=== PATIENT | female | born 1990 | race Caucasian/White ===

== ENCOUNTER → 2017-06-01 15:13 | Outpatient (CLI) | payer OTHER, SELFPAY ==
[2017-06-08 13:45] LABS: HPV Reflexed? NOT INDICATED
== END ==
PROVIDERS: Visit Provider Obstetrics & Gynecology
DX: Z12.4 Encounter for screening for malignant neoplasm of cervix (principal)
CPT/HCPCS: 88175; G0145

== ENCOUNTER → 2017-07-21 11:23 | Outpatient (CLI) | payer OTHER, SELFPAY ==
[2017-07-21 14:29] LABS: Thyroid Stim Hormone (TSH) 2.04 uIU/mL (0.358-3.74)
== END ==
PROVIDERS: Family Provider Family Medicine; PCP Family Medicine; Visit Provider Family Medicine
DX: E03.9 Hypothyroidism, unspecified (principal)
CPT/HCPCS: 36415; 84443

== ENCOUNTER → 2017-10-28 15:46 | Outpatient (CLI) | payer OTHER, SELFPAY | PROVIDERS: Family Provider Family Medicine; PCP Family Medicine; Visit Provider Otolaryngology Otolaryngology/Facial Plastic Surgery | DX: H92.10 Otorrhea, unspecified ear (principal) | CPT/HCPCS: 87070; 87075; 87077; 87186; 87205 ==

== ENCOUNTER → 2017-12-23 14:45 | Outpatient (CLI) | payer OTHER, SELFPAY ==
[2017-12-23 16:33] LABS: Thyroid Stim Hormone (TSH) 0.67 uIU/mL (0.358-3.74)
== END ==
PROVIDERS: Family Provider Family Medicine; PCP Family Medicine; Visit Provider Family Medicine
DX: E03.9 Hypothyroidism, unspecified (principal)
CPT/HCPCS: 36415; 84443

== ENCOUNTER 2018-01-04 03:52 | Emergency (ER) | payer OTHER, SELFPAY ==
[2018-01-04 03:54] VITALS: BP 120/87; PULSE 90; RESP 16; TEMP 36.7; O2SAT 98; BMI 32.8
--- NOTE | 2018-01-04 04:28 | US_ITS ---
STUDY: ABDOMINAL ULTRASOUND - RIGHT UPPER QUADRANT REASON FOR VISIT: Female, 27 years old. Abdominal pain TECHNIQUE: Ultrasound evaluation of the right upper quadrant was performed with real-time and static wiggins-scale imaging. TECHNICAL QUALITY: Limited. COMPARISON: None. FINDINGS: Liver: The liver measures 16.5 cm. There is increased echogenicity consistent with fatty infiltration. The bile ducts are within normal limits. There is hepatic color flow. The direction of portal flow is hepatopetal. Hypoechoic region left hepatic lobe 3.4 cm. Gallbladder: Normal distended gallbladder. The gallbladder wall measures 3 mm. There is a negative sonographic Gong's sign. There is no pericholecystic fluid. There are multiple echogenic structures within the gallbladder, consistent with multiple gallstones. Common Bile Duct (C.B.D.): The common bile duct measures 3 mm. Pancreas: Normal size of the head, body and tail of the pancreas. There is normal echogenicity of the pancreas. There is no demonstrated pancreatic mass or cyst. Right Kidney: Normal size of the right kidney. The right kidney measures 9.7 x 4.1 x 4.6 cm. Normal renal cortex. The right cortex measures 1.4 cm. There is no demonstrated renal mass or cyst. There is no right hydronephrosis. US/Gallbladder IMPRESSION: Cholelithiasis. No gallbladder wall thickening or pericholecystic fluid. Negative sonographic Gong's sign. Hypoechoic region within the left hepatic lobe. No prior studies available for comparison. Recommend correlation with CT scan with IV contrast. Underlying mass cannot be excluded. Other findings as above. Electronically Signed: Earl Guerra, at 6:10 EDT Tel , Service support ,
[2018-01-04] MEDS: Ondansetron 4 MG/2 ML Vial IV (04:39)
[2018-01-04] MEDS: Ketorolac 30 MG/ML Syringe IV (04:39)
[2018-01-04] MEDS: 0.9% Normal Saline 1,000 ML 1000 ML IV (04:39)
[2018-01-04 04:50] LABS: Absolute Lymphocyte Count 3.34 X10^3/ul (0.83-4.51); Absolute Neutrophil Count 5.5 X10^3/uL (2.0-7.7); Basophil# 0.03 X10^3/uL; Basophil% 0.3 % (0-1); Eosinophil# 0.15 X10^3/uL; Eosinophils% 1.5 % (0-5); Hematocrit 40.7 % (37-47); Hemoglobin 13.3 g/dl (12.0-15.0); Lymphocyte # 3.34 X10^3/ul (4.0); Lymphocyte % 34.3 % (19-41); Mean Corp Hgb Conc 32.7 g/gl (32-36); Mean Corpuscular Hgb 29.6 pg (27.0-32.0); Mean Corpuscular Volume 90.4 fL (81-99); Mean Platelet Vol. 9.9 fl (6.2-12.0); Monocyte# 0.71 X10^3/uL; Monocyte% 7.3 % (0-10); Neutrophil % 56.5 % (47-70); Platelet Count 256 K/mm3 (150-450); RBC Distribution Width CV 13.2 % (11.6-14.6); RBC Distribution Width SD 43.6 fl (35.1-43.9); White Blood Count 9.7 K/mm3 (4.4-11.0)
[2018-01-04 04:51] LABS: POSITIVE COUNT NO; POSITIVE DIFFERENTIAL NO; POSITIVE MORPHOLOGY NO
[2018-01-04 05:04] LABS: AST(SGOT) 12 U/L (15-37); Alanine Aminotransfer ALT/SGPT 32 U/L (13-56); Albumin, Serum 3.7 g/dL (3.2-5.0); Alkaline Phosphatase 90 U/L (45-117); Anion Gap 8 (5-15); BUN 17 mg/dL (7-18); BUN/Creat Ratio 18.7 RATIO (10-20); Calcium,Total 8.9 mg/dL (8.5-10.1); Chloride 105 mmol/L (98-107); Creatinine, Serum 0.91 mg/dL (0.55-1.02); EST Glomerular Filtration Rate 79 mL/min (>60); Est Glom Filt Rate - Afr Amer 96 mL/min (>60); Estimated Creatinine Clearance 67.29 ml/min; Globulin 3.7 g/dL (2.2-4.2); Glucose 99 mg/dL (74-106); Lipase 214 U/L (73-393); Protein, Total 7.4 g/dL (6.4-8.2); Sodium Level 140 mmol/L (136-145)
[2018-01-04 05:19] LABS: Pregnancy, Serum, hCG Quali. NEGATIVE Negative (0-9 Nonpreg)
[2018-01-04 05:53] VITALS: RESP 14
--- NOTE | 2018-01-04 06:31 | CT_ITS ---
STUDY: CT ABDOMEN AND PELVIS WITH CONTRAST REASON FOR EXAM: Female, 27 years old. Abdominal pain RADIATION DOSAGE (If Supplied By Facility): CTDIvol = ( 15.52 ) mGy, DLP = ( 1037.15 ) mGycm TECHNIQUE: Transaxial images were obtained from the dome of the diaphragm to the symphysis pubis without oral contrast. 100 ml of Isovue 300 contrast was administered. Sagittal and coronal images were reconstructed. Individualized dose optimization techniques were used for this CT. COMPARISON: None. FINDINGS: The visualized lung bases are unremarkable. The visualized portions of the heart are within normal limits. Normal liver. Normal gallbladder and extrahepatic biliary system. Normal spleen. Normal pancreas. Normal bilateral adrenal glands. Normal right kidney. Normal left kidney. There is a tiny 1.1 mm nonobstructing left nephrolith. Normal visualized stomach. Normal small intestine. Normal colon. The appendix is visualized and appears normal. Normal abdominal aorta. Normal inferior vena cava. Normal retroperitoneum. Normal urinary bladder. Normal visualized uterus. IUD seen in the endometrium. Normal abdominal wall. Normal osseous structures. CT/Abdomen/Pelvis W IV Cont ONLY IMPRESSION: Normal enhanced CT of the abdomen and pelvis. Electronically Signed: Reji Cloud DO at 7:20 EDT Tel , Service support ,
--- NOTE | 2018-01-04 06:36 | ED.VISSUMM ---
- ER Visit Summary Date of Service: 01/04/18 Chief Complaint: Abdominal pain History of Present Illness: The patient is a 27 F who presents with abdominal pain. Abdominal pain began about 8 hours before presentation after eating dinner. She had chicken wings and [place] fries. Her pain is burning and across the epigastrium and in the right upper quadrant. She currently rates it as 4 out of 10. She had one prior similar episode to this. She reports nausea. She has chronic diarrhea which is unchanged and not new to her current symptoms. She denies fevers. Physical Examination: Afebrile vitals are normal Moist mucous membranes Heart regular rate and rhythm Lungs are clear Abdomen soft nondistended she is tender to palpation in the right upper quadrant she has a Gong's sign but does not have guarding or rebound Alert Test Results: CBC CMP and lipase are normal. is negative. Right upper quadrant ultrasound shows cholelithiasis without gallbladder wall thickening or pericholecystic fluid. There is a hypoechoic liver area and further evaluation with CT was recommended. Emergency Department Course and Treatment: Patient was treated with IV fluids Toradol and Zofran. She is resting comfortably with significant improvement on reevaluation. Repeat abdominal exam, her abdomen remains soft it is nontender. I discussed findings with her. She has evidence of cholelithiasis but not of acute cholecystitis. I see no indication for emergent surgical consultation. I do believe she can follow-up with surgery as an outpatient. At the time of this dictation I have ordered a CT of the abdomen and pelvis which is pending at the time of this dictation and the patient will be signed out to the oncoming physician to check this result but I do believe the patient can be discharged with outpatient follow-up unless that shows an abnormality that would need more urgent intervention or evaluation. Treatment Plan: [] Disposition: Discharge Impression: Abdominal pain Cholelithiasis This note was generated with [employer] dictation software. It may contain incorrect words, spelling, and punctuation that were not noted in review of the chart prior to signing ED Disposition - Plan for ED Patient: Chief Complaint: Abd Pain Referrals: Earnest Henson MD [Primary Care Provider] -
--- NOTE | 2018-01-04 06:40 | ED.DCSUM_ITS ---
- ER Visit Summary Date of Service: 01/04/18 Chief Complaint: Abdominal pain History of Present Illness: The patient is a 27 F who presents with abdominal pain. Abdominal pain began about 8 hours before presentation after eating dinner. She had chicken wings and [place] fries. Her pain is burning and across the epigastrium and in the right upper quadrant. She currently rates it as 4 out of 10. She had one prior similar episode to this. She reports nausea. She has chronic diarrhea which is unchanged and not new to her current symptoms. She denies fevers. Physical Examination: Afebrile vitals are normal Moist mucous membranes Heart regular rate and rhythm Lungs are clear Abdomen soft nondistended she is tender to palpation in the right upper quadrant she has a Gong's sign but does not have guarding or rebound Alert Test Results: CBC CMP and lipase are normal. is negative. Right upper quadrant ultrasound shows cholelithiasis without gallbladder wall thickening or pericholecystic fluid. There is a hypoechoic liver area and further evaluation with CT was recommended. Emergency Department Course and Treatment: Patient was treated with IV fluids Toradol and Zofran. She is resting comfortably with significant improvement on reevaluation. Repeat abdominal exam, her abdomen remains soft it is nontender. I discussed findings with her. She has evidence of cholelithiasis but not of acute cholecystitis. I see no indication for emergent surgical consultation. I do believe she can follow-up with surgery as an outpatient. At the time of this dictation I have ordered a CT of the abdomen and pelvis which is pending at the time of this dictation and the patient will be signed out to the oncoming physician to check this result but I do believe the patient can be discharged with outpatient follow-up unless that shows an abnormality that would need more urgent intervention or evaluation. Treatment Plan: [] Disposition: Discharge Impression: Abdominal pain Cholelithiasis This note was generated with [employer] dictation software. It may contain incorrect words, spelling, and punctuation that were not noted in review of the chart prior to signing ED Disposition - Plan for ED Patient: Chief Complaint: Abd Pain Referrals: Earnest Henson MD [Primary Care Provider] -
--- NOTE | 2018-01-04 06:40 | ED.DEP ---
ED Disposition - Plan for ED Patient: Chief Complaint: Abd Pain Instructions: Discharge Instructions for Gallstones Referrals: Earnest Henson MD [Primary Care Provider] - Soo Troy MD [STAFF PHYSICIAN] -
[2018-01-04 07:52] VITALS: BP 134/69; PULSE 72; RESP 15; O2SAT 98
== END 2018-01-04 07:53 | disposition home or self-care (01) ==
LOC: ED 04:36
PROVIDERS: Emergency Provider Emergency Medicine; Family Provider Family Medicine; PCP Family Medicine
DX: K80.20 Calculus of gallbladder without cholecystitis without obstruction (principal); R10.13 Epigastric pain; R10.11 Right upper quadrant pain; F32.9 Major depressive disorder, single episode, unspecified; Z79.899 Other long term (current) drug therapy
CPT/HCPCS: 74177; 76705; 80053; 83690; 84703; 85025; 96361; 96374; 96375; 99283; J7030; Q9967; A4216; J2405

== ENCOUNTER 2018-01-07 01:43 | Emergency (ER) | payer OTHER, SELFPAY ==
[2018-01-07 01:44] VITALS: BP 124/92; PULSE 90; PULSE 93; RESP 17; TEMP 36.8; O2SAT 98; BMI 38.5
--- NOTE | 2018-01-07 02:00 | ED.VISSUMM ---
- ER Visit Summary Date of Service: 01/07/18 Chief Complaint: [] Abdominal pain History of Present Illness: The patient is a 27 F [] recently seen in the emergency department and diagnosed with gallbladder stones on the . Comes back with her second attack tonight. She is using ibuprofen only. Came on after dinner tonight 7 PM. Is been continuous burning sharp pressure pain associated with nausea. She saw Dr. French today in the schedule surgery for 7 days from now to have her gallbladder out Physical Examination: [] Vital signs reviewed General: Well-nourished well-developed Head: Normocephalic atraumatic Eyes: Pupils equal round and reactive to light extraocular movements intact ENT: TMs clear no hemotympanum no trauma Neck: Nontender full range of motion Cardiovascular: Regular rate rhythm no murmurs normal S1-S2 Respiratory: No distress clear to auscultation bilaterally chest nontender Abdomen: Soft mild tenderness right upper quadrant nondistended normal bowel sounds no masses Back: Nontender no CVA tenderness Extremities: Nontender active range of motion ?4 extremities no trauma Skin: Normal color no trauma Neuro alert oriented cranial nerves II through XII intact normal strength sensation reflexes Test Results: [] Emergency Department Course and Treatment: [] IV established and given IV fluids, morphine, Toradol, Zofran. Lab work obtained lab work unremarkable. No elevation in her liver function tests and lipase to suggest a common bile duct stone or cholecystitis. White count normal. Patient felt much better after treatment. Will be discharged with Zofran and a short course of Vicodin. Will do stool softeners. Will follow-up as an outpatient with her surgeon. I do not feel she needs to be admitted Treatment Plan: [] Disposition: [] Impression: [] Biliary colic This note was generated with [employer] dictation software. It may contain incorrect words, spelling, and punctuation that were not noted in review of the chart prior to signing ED Disposition - Plan for ED Patient: Chief Complaint: Abd Pain Referrals: Earnest Henson MD [Primary Care Provider] -
[2018-01-07] MEDS: 0.9% Normal Saline 1,000 ML 125 ML IV (02:07)
[2018-01-07] MEDS: Ketorolac 30 MG/ML Syringe IV (02:07)
[2018-01-07] MEDS: Ondansetron 4 MG/2 ML Vial IV (02:07)
[2018-01-07] MEDS: Morphine 2 MG/ML Syringe IV (02:07)
[2018-01-07 02:10] LABS: Absolute Lymphocyte Count 4.32 X10^3/ul (0.83-4.51); Absolute Neutrophil Count 4.4 X10^3/uL (2.0-7.7); Basophil# 0.02 X10^3/uL; Basophil% 0.2 % (0-1); Differential Indicated SCAN CRITERIA MET; Eosinophil# 0.16 X10^3/uL; Eosinophils% 1.7 % (0-5); Hematocrit 40.5 % (37-47); Hemoglobin 13.1 g/dl (12.0-15.0); Lymphocyte # 4.32 X10^3/ul (4.0); Lymphocyte % 44.8 % (19-41); Mean Corp Hgb Conc 32.3 g/gl (32-36); Mean Corpuscular Hgb 29.3 pg (27.0-32.0); Mean Corpuscular Volume 90.6 fL (81-99); Mean Platelet Vol. 9.7 fl (6.2-12.0); Monocyte# 0.74 X10^3/uL; Monocyte% 7.7 % (0-10); Neutrophil # 4.39 X10^3/uL (2.7-7.7); Neutrophil % 45.4 % (47-70); POSITIVE COUNT NO; POSITIVE DIFFERENTIAL NO; POSITIVE MORPHOLOGY YES; Platelet Count 275 K/mm3 (150-450); RBC Distribution Width CV 13.1 % (11.6-14.6); RBC Distribution Width SD 42.8 fl (35.1-43.9); Red Blood Count 4.47 M/mm3 (4.2-5.4); White Blood Count 9.7 K/mm3 (4.4-11.0)
[2018-01-07 02:19] LABS: AST(SGOT) 15 U/L (15-37); Alanine Aminotransfer ALT/SGPT 28 U/L (13-56); Albumin, Serum 3.9 g/dL (3.2-5.0); Alkaline Phosphatase 88 U/L (45-117); Anion Gap 8 (5-15); BUN 13 mg/dL (7-18); BUN/Creat Ratio 15.3 RATIO (10-20); Bilirubin, Direct 0.07 mg/dL (0.00-0.30); Calcium,Total 8.6 mg/dL (8.5-10.1); Chloride 106 mmol/L (98-107); Creatinine, Serum 0.85 mg/dL (0.55-1.02); EST Glomerular Filtration Rate 85 mL/min (>60); Est Glom Filt Rate - Afr Amer 103 mL/min (>60); Estimated Creatinine Clearance 72.04 ml/min; Globulin 3.7 g/dL (2.2-4.2); Glucose 101 mg/dL (74-106); Lipase 221 U/L (73-393); Potassium 3.9 mmol/L (3.5-5.1); Protein, Total 7.6 g/dL (6.4-8.2); Sodium Level 138 mmol/L (136-145)
[2018-01-07 02:21] LABS: Differential Comment SCANNED
--- NOTE | 2018-01-07 02:34 | DCINST.ED_ITS ---
ED Disposition - Plan for ED Patient: Disposition: Home or Assisted Living Chief Complaint: Abd Pain Instructions: ED Abdominal Pain Gallstone Poss Prescriptions: Ondansetron [Zofran Odt] 4 mg PO Q8H PRN PRN #10 tab PRN Reason: Nausea Hydrocodone/Acetaminophen [[place] 5-325 Tablet] 1 - 2 ea PO 4X/DAY PRN PRN 3 Days #12 tab PRN Reason: Pain Referrals: Zack French MD [STAFF PHYSICIAN] -
[2018-01-07 02:43] VITALS: BP 110/85; PULSE 97; RESP 14; O2SAT 97
== END 2018-01-07 02:45 | disposition home or self-care (01) ==
PROVIDERS: Emergency Provider Emergency Medicine; Family Provider Family Medicine; PCP Family Medicine
DX: K80.70 Calculus of gallbladder and bile duct without cholecystitis without obstruction (principal); E66.9 Obesity, unspecified; E03.9 Hypothyroidism, unspecified; F32.9 Major depressive disorder, single episode, unspecified; F41.9 Anxiety disorder, unspecified; Z79.899 Other long term (current) drug therapy
CPT/HCPCS: 80048; 80076; 83690; 85025; 96361; 96374; 96375; 99283; J7030; A4216; J2405

== ENCOUNTER 2018-01-11 09:04 | Day surgery (SDC) | payer OTHER, SELFPAY ==
[2018-01-11] VITALS (8 sets, daily range): BP systolic 95–119; BP diastolic 60–80; PULSE 71–95; RESP 14–18; TEMP 36.1–36.9; O2SAT 90–98; BMI 36.1
--- NOTE | 2018-01-11 09:12 | EKG12_ITS ---
Test Reason : PREOP Blood Pressure : / mmHG Vent. Rate : 082 BPM Atrial Rate : 082 BPM P-R Int : 110 ms QRS Dur : 086 ms QT Int : 374 ms P-R-T Axes : 010 022 024 degrees QTc Int : 436 ms Sinus rhythm with short HI Otherwise normal ECG Confirmed by Kassandra King ([id number]), metropolitan editor KENNY BROCK ([id number]) on 01/16/2018 3:39:31 PM Referred By: Zack French Confirmed By:Kassandra King
[2018-01-11 09:32] LABS: Internal QC Validated? YES +Cl - CLEAR BKGD; Pregnancy, Urine Negative Negative
--- NOTE | 2018-01-11 11:01 | DCINST_ITS ---
Discharge Diet: Light diet - advance as tolerated Discharge Activity: May Not Drive - for 2-3 days or while taking narcotic pain medications., - - Do not drive, work heavy equipment or sign legal documents for 24 hours. May shower in (days): 1 - with the bandage in place. Additional Activity Instructions:: Pain medication may cause nausea. You should typically eat light foods as you take your pain medications. Pain medication may also cause constipation. If this is a problem for you, please discuss with your doctor. Call your doctor if your incision/area has: Continuous Slow Oozing, Sudden Increased Bleeding, Increased Pain/ Swelling, Increased Redness, Foul Smelling Discharge Call your doctor if you observe: Fever of 101 or Higher Suture Line Care: Avoid Pulling/Pushing, Avoid Pinching/Bending Additional Dressing/Incision Instructions:: Leave operative bandaids on for 2 days. When you remove dressing, leave Steri-Strips on until your follow-up appointment, or until the Steri-Strips fall off on their own. Allergies/Adverse Reactions: Allergies cephalexin [From Keflex] Adverse Reaction (Mild, Verified 01/10/18 08:58) Diarrhea fluoxetine HCl [From Prozac] Adverse Reaction (Verified 01/10/18 08:58) pancreatitis Medications to take at Discharge Atomoxetine HCl [Strattera] 60 mg PO DAILY 04/24/17 Levothyroxine [Synthroid] 50 mcg PO DAILY 04/24/17 sertraline 100 mg tablet 100 mg PO DAILY 01/06/18 Hydrocodone/Acetaminophen [[place] 5-325 Tablet] 1 - 2 ea PO 4X/DAY PRN PRN 3 Days #12 tab 01/07/18 Ondansetron [Zofran Odt] 4 mg PO Q8H PRN PRN #10 tab 01/07/18 Levonorgestrel [Mirena] 1 each IY DAILY 01/10/18 Oxycodone HCl/Acetaminophen [Percocet 5/325] 1 - 2 tab PO Q4H PRN PRN 5 Days #30 tab 01/11/18 The following prescriptions were given: Oxycodone HCl/Acetaminophen [Percocet 5/325] 1 - 2 tab PO Q4H PRN PRN 5 Days #30 tab PRN Reason: Pain Primary Care Physician: Earnest Henson MD [Primary Care Provider] - Test Results: Test results from this visit will be discussed in further detail at your follow- up appointment, if applicable. Please Follow Up With: Zack French MD - Please call [phone] to schedule an appointment. When: 7 days after your surgery.
--- NOTE | 2018-01-11 11:01 | PCM.OPRPT ---
Problem List (1) Calculus of gallbladder with acute on chronic cholecystitis without obstruction Status: Acute (2) Right upper quadrant pain Status: Acute Report of Operation Date of Procedure: 01/11/18 Pre-Operative Diagnosis: k80.12 acute on chronic cholecystitis without obstruction. r10.11 right upper quadrant abdominal pain Post-Operative Diagnosis: Same Surgery/Procedure Performed:: Laparoscopic cholecystectomy Type of Anesthesia:: General Anesthesiologist: Angel Lopez Specimen's removed: Gallbladder Estimated Blood Loss (mL): < 25 cc Fluids Replaced: 1 L LR Description of Procedure: Patient was brought into the operating room and placed in the supine position. Under excellent general endotracheal sedation the abdomen was sterilely prepped and draped in the usual fashion. Local was injected infraumbilically. A curvilinear incision was made. Fascia was grasped with a [place]. Varies needle was placed inside the abdomen. The abdomen was insufflated to 15 torr. A 10/12 trocar was placed without difficulty. Patient was placed in the upright position rotating to the left. I placed a subxiphoid #5 trocar, inferior to this another #5 trocar, and laterally a #5 trocar. All these under direct visualization without injury to underlying structures. Fundus of the gallbladder was grasped and retracted in a cephalad direction. I dissected out the cystic duct. Place hemoclips proximally distally and ligated the duct. Identified the cystic artery. I placed hemoclips proximally and distally and ligated the artery. I deliver the gallbladder from the gallbladder bed with use of electrocautery. I placed the specimen specimen bag and delivered through the umbilical port without difficulty. I reinspected the liver bed good hemostasis was noted. I removed the trochars under direct visualization. Good hemostasis was noted. Close the fascia the umbilical port with a [id number] stitch of 0 Vicryl. Skin incisions were closed with subcuticular stitches of 4-0 Monocryl. Steri-Strips were applied. Patient tolerated the procedure well. - Admit VTE Documentation VTE Present on Admission: No VTE Mechan Device Prophylaxis: SCD's VTE Pharm Prophylaxis ordered?: No Reason prophylaxis not ordered:: Treatment Not Indicated
--- NOTE | 2018-01-11 11:20 | GALL_PTH ---
PATIENT: KEMI WILLIS LOC: [facility] U#:[id number] AGE/SX: 27/F ROOM: RE01/11/[address]: Dr. Zack French MD : [id number] BED: DIS: 01/11/2018 SPEC #: [id number] RECD: 01/11/18 16:17 STATUS: FRANKLIN FRACISCO #: [id number] BREONNA: 01/11/18 11:[address]: Zack French DEPT: SURGICAL PATHOLOGY RECD BY: Monica Farias ENTERED: 01/12/18 09:26 SP TYPE: LACI MARTIN DR: Dr. Earnest Henson MD Tissues: Gallbladder, NOS Procedures: Surgery Specimen Level III HEADER OPERATION: Laparoscopic, cholecystectomy PRE-OP DIAGNOSIS: Chronic cholelithiasis TISSUE SUBMITTED: Gallbladder and contents MICROSCOPIC DIAGNOSIS Gallbladder and contents: Chronic cholecystitis, cholelithiasis and cholesterolosis. SJ:ashlie 01/13/18 MICROSCOPIC DESCRIPTION Slides are reviewed. GROSS DESCRIPTION Received is one container labeled with the patient's name and designated gallbladder and contents. The specimen consists of a gallbladder measuring 10 cm in length and 3 cm in diameter. The external surface is pink-barboza, smooth and glistening for the most part. Focally it is granular, hemorrhagic and contains cautery artifact. The gallbladder contains green-yellow mucoid bile and three mulberry stones each measuring 1 cm in greatest dimension. The mucosa is bile-stained and without any mass lesions. The gallbladder wall measures up to 0.3 cm in thickness. Secretarial Stenographer sections from the gallbladder and the cystic duct are submitted in one cassette. / SJ:rg 01/12/18 TC:3 CPT: 95482
[2018-01-11] MEDS: Bupivacaine Mpf 0.5% 30 ML VIAL (11:24)
[2018-01-11] MEDS: oxyCODONE HCl Cr 10 MG Tablet PO (13:46)
== END 2018-01-11 14:00 | disposition home or self-care (01) ==
LOC: SDC 09:05 → AC 09:06
PROVIDERS: Family Provider Family Medicine; PCP Family Medicine; Visit Provider Surgery
PROC: (CPT 47610; principal; 2018-01-11 11:00)
DX: K80.12 Calculus of gallbladder with acute and chronic cholecystitis without obstruction (principal); K21.9 Gastro-esophageal reflux disease without esophagitis; F32.9 Major depressive disorder, single episode, unspecified; F41.9 Anxiety disorder, unspecified; Z79.891 Long term (current) use of opiate analgesic; Z79.899 Other long term (current) drug therapy
CPT/HCPCS: 47562; 81025; 88304; 93005; J7120; J2405

== ENCOUNTER → 2018-07-21 14:04 | Outpatient (CLI) | payer OTHER, SELFPAY ==
[2018-01-11 09:23] VITALS: BMI 36.1
[2018-07-27 15:48] LABS: HPV Reflexed? NOT INDICATED
== END ==
PROVIDERS: Visit Provider Obstetrics & Gynecology
DX: Z12.4 Encounter for screening for malignant neoplasm of cervix (principal)
CPT/HCPCS: 87624; 88175; G0145

== ENCOUNTER → 2018-07-28 | Outpatient (CLI) | payer OTHER, SELFPAY ==
[2018-01-11 09:23] VITALS: BMI 36.1
[2018-07-28 13:46] LABS: Thyroid Stim Hormone (TSH) 0.71 uIU/mL (0.358-3.74)
== END | disposition home or self-care (01) ==
LOC: MFPLAB 11:57
PROVIDERS: Family Provider Family Medicine; PCP Family Medicine; Referring Provider Family Medicine; Visit Provider Family Medicine
DX: E03.9 Hypothyroidism, unspecified (principal)
CPT/HCPCS: 36415; 84443

== ENCOUNTER → 2019-01-29 | Outpatient (CLI) | payer OTHER, SELFPAY ==
[2019-01-29 08:44] VITALS: BMI 40.0
[2019-01-29 12:53] LABS: Anion Gap 7 (5-15); BUN 13 mg/dL (7-18); BUN/Creat Ratio 15.2 RATIO (10-20); Calcium,Total 8.7 mg/dL (8.5-10.1); Chloride 108 mmol/L (98-107); Creatinine, Serum 0.86 mg/dL (0.55-1.02); EST Glomerular Filtration Rate 84 mL/min (>60); Est Glom Filt Rate - Afr Amer 102 mL/min (>60); Free T3 2.3 pg/mL (2.18-3.98); Glucose 114 mg/dL (74-106); Potassium 3.9 mmol/L (3.5-5.1); Sodium Level 139 mmol/L (136-145); Thyroid Stim Hormone (TSH) 0.87 uIU/mL (0.358-3.74)
== END | disposition home or self-care (01) ==
LOC: MTLAB 09:36
PROVIDERS: Family Provider Family Medicine; PCP Family Medicine; Referring Provider Family Medicine; Visit Provider Family Medicine
DX: E03.9 Hypothyroidism, unspecified (principal); R61 Generalized hyperhidrosis
CPT/HCPCS: 36415; 80048; 84436; 84443; 84481

== ENCOUNTER 2019-04-01 16:27 | Observation (INO) | payer OTHER, SELFPAY ==
[2019-01-29 08:44] VITALS: BMI 40.0
[2019-04-01] VITALS (10 sets, daily range): BP systolic 98–131; BP diastolic 63–80; PULSE 72–95; RESP 16–20; TEMP 36.2–37.1; O2SAT 93–99; BMI 37.0; BMI 35.9; BMI 37.1
--- NOTE | 2019-04-01 16:36 | CT_ITS ---
STUDY: CT ABDOMEN AND PELVIS WITH CONTRAST REASON FOR EXAM: Female, 28 years old. Right lower abdominal pain nausea vomiting RADIATION DOSAGE (If Supplied By Facility): CTDIvol = ( 14.67 ) mGy, DLP = ( 1131.43 ) mGycm TECHNIQUE: CT images were obtained from the dome of the diaphragm to the symphysis pubis without oral contrast. 100mL Isovue 370 was administered. Sagittal and coronal images were reconstructed. Individualized dose optimization techniques were used for this CT. COMPARISON: 04 January 2018 FINDINGS: The visualized lung bases are unremarkable. The visualized portions of the heart are within normal limits. Normal liver. Gallbladder is surgically removed.. Normal spleen. Normal pancreas. Normal bilateral adrenal glands. Normal right kidney. Normal left kidney. Appendix is mildly enlarged with surrounding mild inflammatory change and possibly increased number of lymph nodes. Remainder of the gastric intestinal tract is normal without obstruction. Aorta is normal in caliber. BMI is severely elevated. There is mixed intra-abdominal retroperitoneal and peritoneal lipomatosis. This is a benign condition associated with hyperglycemia and accelerated atherosclerosis. This does not require dedicated imaging. Normal urinary bladder. Normal abdominal wall. Normal osseous structures. CT/Abdomen/Pelvis W IV Cont ONLY IMPRESSION: Presumed early appendicitis. Electronically Signed: Julieth Beyer, at 18:17 EST Tel , Service support ,
--- NOTE | 2019-04-01 16:38 | ED.DCSUM_ITS ---
History of Present Illness Informant: Patient Narrative: 28-year-old female presents with concern for right lower quadrant pain. States it began approximately 2-1/2 hours ago. Describes it as sharp and constant. Worse with movement. Admits to nausea and vomiting. Denies any vaginal bleeding or discharge. Last menstrual period 25 days ago. Denies any fever, chills, chest pain, shortness of breath, urinary symptoms. <Hernando Jean - Last Filed: 04/01/19 17:58> <Althea Bryant - Last Filed: 04/01/19 18:36> Chief Complaint: Abd Pain Past Medical History Prior records reviewed: Yes Past Medical History: None Surgical History: cholecystectomy, - - Colonoscopy, EGD, breast reduction, C- section Lives: Spouse/ Significant Other Smoking Status: Never smoker - Family History Maternal Family History: Family History (Last Reviewed 01/29/19 @ 08:50 by Krista Mullins) Mother Thyroid disorder Father Diabetes Hypertension Other Anemia CHF (congestive heart failure) Cancer Kidney disease Family History: Reports: Cancer - Breast ca <Hernando Jean - Last Filed: 04/01/19 17:58> - Family History Maternal Family History: Family History (Last Reviewed 01/29/19 @ 08:50 by Krista Mullins) Mother Thyroid disorder Father Diabetes Hypertension Other Anemia CHF (congestive heart failure) Cancer Kidney disease <Althea Bryant - Last Filed: 04/01/19 18:36> - Allergies and Home Meds Allergies/Adverse Reactions: Allergies cephalexin [From Keflex] Adverse Reaction (Mild, Verified 04/01/19 16:32) Diarrhea fluoxetine HCl [From Prozac] Adverse Reaction (Verified 04/01/19 16:32) pancreatitis Primary Care Physician: Earnest Henson MD [Primary Care Provider] - Review of Systems General: Denies: Chills, Fever, Sweats Eyes: Denies: Visual changes - bilaterally, Diplopia ENT: Denies: Rhinorrhea, Sore throat Cardiovascular: Denies: Chest pain, Palpitations Respiratory: Denies: Dyspnea, Cough, Dyspnea on exertion Gastrointestinal: Reports: Abdominal pain, Nausea, Vomiting. Denies: Diarrhea, Melena, Hematochezia Genitourinary: Denies: Dysuria, Hematuria, Frequency Musculoskeletal: Denies: Back pain, Extremity Pain Skin: Denies: Rash, Wounds Neurological: Denies: Headache, Weakness, Numbness <Hernando Jean - Last Filed: 04/01/19 17:58> Physical Exam Vital Signs/Narrative: Vital Signs Temp Pulse Resp BP Pulse Ox 04/01/19 16:28 98.7 F 95 20 H 131/80 H 95 General: Well nourished, Well developed, No Acute Distress Head: Normocephalic, Atraumatic Eyes: Perrl, EOMI ENT: Moist mucous membranes, No rhinorrhea Neck: Supple, Nontender Cardiovascular: Regular rate, Regular rhythm, No murmurs Respiratory: No distress, CTA bilaterally, Chest nontender Abdomen: Soft, Nondistended, Normal bowel sounds, Tender, - - RLQ tenderness. Back: Nontender, Normal Inspection Extremities: Nontender, No edema Skin: Normal color, No rash Neurological: Alert, Oriented x3, Cranial nerves II-XII grossly intact, Normal Strength, Normal Sensation Psychological: Normal affect, Normal Mood <Hernando Jean - Last Filed: 04/01/19 17:58> Vital Signs/Narrative: Vital Signs Temp Pulse Resp BP Pulse Ox 04/01/19 16:28 98.7 F 95 20 H 131/80 H 95 <Althea Bryant - Last Filed: 04/01/19 18:36> Diagnostic/Tx/Re-eval Laboratory Tests 04/01/19 04/01/19 04/01/19 Range/Units 16:50 16:50 16:37 WBC (4.4-11.0) K/mm3 RBC (4.2-5.4) M/mm3 Hgb (12.0-15.0) g/dL Hct (37-47) % MCV (81-99) fL MCH (27.0-32.0) pg MCHC (32-36) g/dL RDW Std Deviation (35.1-43.9) fl RDW Coeff of Ajit (11.6-14.6) % Plt Count (150-450) K/mm3 MPV (6.2-12.0) fl Immature Gran % (Auto) (0.0-0.9) % Neut % (Auto) (47-70) % Lymph % (Auto) (19-41) % [place] % (Auto) (0-10) % Eos % (Auto) (0-5) % Baso % (Auto) (0-1) % Absolute Neuts (auto) (2.0-7.7) X10^3/uL Absolute Lymphs (auto) (0.83-4.51) X10^3/uL Nucleated RBC % (0-5) % Sodium 139 (136-145) mmol/L Potassium 3.6 (3.5-5.1) mmol/L Chloride 107 (98-107) mmol/L Carbon Dioxide 26.0 (21.0-32.0) mmol/L Anion Gap 6 (5-15) BUN 13 (7-18) mg/dL Creatinine 0.83 (0.55-1.02) mg/dL Estim Creat Clear Calc 73.13 ml/min Est GFR (MDRD) Af Amer 106 (>60) mL/min Est GFR (MDRD) Non-Af 87 (>60) mL/min BUN/Creatinine Ratio 15.7 (10-20) RATIO Glucose 105 (74-106) mg/dL Calcium 8.9 (8.5-10.1) mg/dL Total Bilirubin 0.20 (0.20-1.00) mg/dL AST 19 (15-37) U/L ALT 35 (13-56) U/L Alkaline Phosphatase 90 (45-117) U/L Total Protein 7.7 (6.4-8.2) g/dL Albumin 4.0 (3.2-5.0) g/dL Globulin 3.7 (2.2-4.2) g/dL Albumin/Globulin Ratio 1.1 (0.9-2.4) RATIO Lipase 180 (73-393) U/L Urine Color Yellow (Yellow) Urine Clarity Clear (Clear) Urine pH 7.0 (5.0 - 8.0) Ur Specific [place] 1.015 (1.002-1.030) Urine Protein Negative (Negative) mg/dl Urine Glucose (UA) Normal (Normal) mg/dl Urine Ketones Negative (Negative) mg/dl Urine Occult Blood 25 H (Negative) /ul Urine Nitrite Negative (Negative) Urine Bilirubin Negative (Negative) mg/dL Urine Urobilinogen Normal (Normal) mg/dl Ur Leukocyte Esterase 25 H (Negative) /ul Urine RBC 0-5 SEEN (0-5) /hpf Urine WBC 0-5 SEEN (0-5) /hpf Ur Squamous Epith Cells 10-25 SEEN (5-10) /hpf Urine Bacteria 1+ (None Seen) /hpf Urine Mucus 0 SEEN (<or=2+) /hpf Urine Test Negative Negative 04/01/19 Range/Units 16:37 WBC 8.1 (4.4-11.0) K/mm3 RBC 4.51 (4.2-5.4) M/mm3 Hgb 13.3 (12.0-15.0) g/dL Hct 41.3 (37-47) % MCV 91.6 (81-99) fL MCH 29.5 (27.0-32.0) pg MCHC 32.2 (32-36) g/dL RDW Std Deviation 41.3 (35.1-43.9) fl RDW Coeff of Ajit 12.5 (11.6-14.6) % Plt Count 268 (150-450) K/mm3 MPV 9.9 (6.2-12.0) fl Immature Gran % (Auto) 0.400 (0.0-0.9) % Neut % (Auto) 67.2 (47-70) % Lymph % (Auto) 26.6 (19-41) % [place] % (Auto) 3.8 (0-10) % Eos % (Auto) 1.5 (0-5) % Baso % (Auto) 0.5 (0-1) % Absolute Neuts (auto) 5.4 (2.0-7.7) X10^3/uL Absolute Lymphs (auto) 2.15 (0.83-4.51) X10^3/uL Nucleated RBC % 0 (0-5) % Sodium (136-145) mmol/L Potassium (3.5-5.1) mmol/L Chloride (98-107) mmol/L Carbon Dioxide (21.0-32.0) mmol/L Anion Gap (5-15) BUN (7-18) mg/dL Creatinine (0.55-1.02) mg/dL Estim Creat Clear Calc ml/min Est GFR (MDRD) Af Amer (>60) mL/min Est GFR (MDRD) Non-Af (>60) mL/min BUN/Creatinine Ratio (10-20) RATIO Glucose (74-106) mg/dL Calcium (8.5-10.1) mg/dL Total Bilirubin (0.20-1.00) mg/dL AST (15-37) U/L ALT (13-56) U/L Alkaline Phosphatase (45-117) U/L Total Protein (6.4-8.2) g/dL Albumin (3.2-5.0) g/dL Globulin (2.2-4.2) g/dL Albumin/Globulin Ratio (0.9-2.4) RATIO Lipase (73-393) U/L Urine Color (Yellow) Urine Clarity (Clear) Urine pH (5.0 - 8.0) Ur Specific [place] (1.002-1.030) Urine Protein (Negative) mg/dl Urine Glucose (UA) (Normal) mg/dl Urine Ketones (Negative) mg/dl Urine Occult Blood (Negative) /ul Urine Nitrite (Negative) Urine Bilirubin (Negative) mg/dL Urine Urobilinogen (Normal) mg/dl Ur Leukocyte Esterase (Negative) /ul Urine RBC (0-5) /hpf Urine WBC (0-5) /hpf Ur Squamous Epith Cells (5-10) /hpf Urine Bacteria (None Seen) /hpf Urine Mucus (<or=2+) /hpf Urine Test Negative - Medical Decision Making Patient has exquisite tenderness to palpation in the right lower quadrant. No rigidity or peritonitis. Afebrile. Lab work within normal limits. Given 1 L normal saline, morphine, and Zofran. On reexamination patient's pain is improved however she is still having continued right lower quadrant abdominal pain. She was given 0.[address] of the abdomen pelvis will be followed by attending physician Dr. Bryant. <Hernando Jean - Last Filed: 04/01/19 17:58> Clinical Impression(s) from Imaging Studies Abdomen/Pelvis CT 04/01/19 16:36 IMPRESSION: Presumed early appendicitis. Electronically Signed: Julieth Beyer, at 18:17 EST Tel , Service support , - Medical Decision Making Patient seen and evaluated with resident. Patient reports right-sided abdominal pain that started mid morning and continues to worsen throughout the day. She had nausea with 1 episode of vomiting. No fever noted. She denies urinary symptoms. Patient uncomfortable but no acute distress. Head and neck examination unremarkable. Heart is regular rate and rhythm. Lung sounds are clear. Abdomen is soft with right mid to lower tenderness. No guarding on my exam. Hypoactive bowel sounds. Laboratory evaluation is undertaken and unremarkable. CT scan, however, does r eveal early appendicitis. I will speak with Dr. Joey Zuluaga as patient has previously seen Dr. French. Patient will be given a dose of Zosyn. <Althea Bryant - Last Filed: 04/01/19 18:36> ED Disposition <Hernando Jean - Last Filed: 04/01/19 17:58> <Althea Bryant - Last Filed: 04/01/19 18:36> - Plan for ED Patient: Disposition: Acute Care Hospital [facility] Diagnosis: Appendicitis Referrals: Earnest Henson MD [Primary Care Provider] -
[2019-04-01] MEDS: 0.9% Normal Saline 1,000 ML 1000 ML IV (16:44)
[2019-04-01] MEDS: Ondansetron 4 MG/2 ML Vial IV ×2 (16:44→21:53)
[2019-04-01] MEDS: Morphine 4 MG/ML Syringe IV (16:44)
[2019-04-01 16:55] LABS: Mucous, Urine 0 SEEN /hpf (<or=2+)
[2019-04-01 16:57] LABS: Color, Urine Yellow (Yellow); Glucose, Dipstick Normal (Normal); Ketone-Dipstick Negative (Negative); Leukocyte Esterase-Dipstick 25 /ul (Negative); Nitrite-Dipstick Negative (Negative); Occult Blood-Urine 25 /ul (Negative); Protein-Dipstick Negative (Negative); Specific Gravity, Urine 1.015 (1.002-1.030); Urine Bilirubin Dipstick Negative (Negative); Urine Clarity Clear (Clear); Urine Urobilinogen Normal (Normal)
[2019-04-01 16:59] LABS: Internal QC Validated? YES +Cl - CLEAR BKGD; Pregnancy, Urine Negative Negative
[2019-04-01 17:06] LABS: Bacteria 1+ /hpf (None Seen); Red Blood Cells-Urine 0-5 SEEN /hpf (0-5); Squamous Epithelial Cells - UA 10-25 SEEN /hpf (5-10); White Blood Cells 0-5 SEEN /hpf (0-5)
[2019-04-01 17:14] LABS: Absolute Lymphocyte Count 2.15 X10^3/uL (0.83-4.51); Absolute Neutrophil Count 5.4 X10^3/uL (2.0-7.7); Basophil# 0.04 X10^3/uL; Basophil% 0.5 % (0-1); Eosinophil# 0.12 X10^3/uL; Eosinophils% 1.5 % (0-5); Hematocrit 41.3 % (37-47); Hemoglobin 13.3 g/dL (12.0-15.0); Lymphocyte # 2.15 X10^3/ul (4.0); Lymphocyte % 26.6 % (19-41); Mean Corp Hgb Conc 32.2 g/dL (32-36); Mean Corpuscular Hgb 29.5 pg (27.0-32.0); Mean Corpuscular Volume 91.6 fL (81-99); Mean Platelet Vol. 9.9 fl (6.2-12.0); Monocyte# 0.31 X10^3/uL; Monocyte% 3.8 % (0-10); NRBC Flagged by Analyzer 0 % (0-5); Neutrophil # 5.44 X10^3/uL (2.7-7.7); Neutrophil % 67.2 % (47-70); Platelet Count 268 K/mm3 (150-450); RBC Distribution Width CV 12.5 % (11.6-14.6); RBC Distribution Width SD 41.3 fl (35.1-43.9); Red Blood Count 4.51 M/mm3 (4.2-5.4); White Blood Count 8.1 K/mm3 (4.4-11.0)
[2019-04-01 17:24] LABS: ALB/GLOB Ratio 1.1 RATIO (0.9-2.4); AST(SGOT) 19 U/L (15-37); Alanine Aminotransfer ALT/SGPT 35 U/L (13-56); Alkaline Phosphatase 90 U/L (45-117); Anion Gap 6 (5-15); BUN 13 mg/dL (7-18); BUN/Creat Ratio 15.7 RATIO (10-20); Calcium,Total 8.9 mg/dL (8.5-10.1); Chloride 107 mmol/L (98-107); Creatinine, Serum 0.83 mg/dL (0.55-1.02); EST Glomerular Filtration Rate 87 mL/min (>60); Est Glom Filt Rate - Afr Amer 106 mL/min (>60); Estimated Creatinine Clearance 73.13 ml/min; Globulin 3.7 g/dL (2.2-4.2); Glucose 105 mg/dL (74-106); Lipase 180 U/L (73-393); Potassium 3.6 mmol/L (3.5-5.1); Protein, Total 7.7 g/dL (6.4-8.2); Sodium Level 139 mmol/L (136-145)
[2019-04-01] MEDS: HYDROmorphone 0.5 MG/0.5 ML SYRINGE IV (18:01)
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
--- NOTE | 2019-04-01 20:00 | APP_PTH ---
PATIENT: KEMI WILLIS LOC: MS3 U#:[id number] AGE/SX: 28/F ROOM: MS309 RE04/01/[address]: Dr. Soo Troy MD : 1990 BED: 1 DIS: 04/02/2019 SPEC #: [id number] RECD: 04/02/19 13:47 STATUS: [place] REQ #: [id number] BREONNA: 04/01/19 20:[address]: Soo Troy DEPT: SURGICAL PATHOLOGY RECD BY: Monica aFrias ENTERED: 04/02/19 14:49 SP TYPE: APPENDIX OTHR DR: Dr. Earnest Henson MD Tissues: Appendix, NOS Procedures: Surgery Specimen Level III HEADER OPERATION: Laparoscopic appendectomy PRE-OP DIAGNOSIS: Acute appendicitis TISSUE SUBMITTED: Appendix MICROSCOPIC DIAGNOSIS Appendix, appendectomy: Acute appendicitis, acute serositis. AM:ashlie 04/03/19 MICROSCOPIC DESCRIPTION Slides are reviewed. GROSS DESCRIPTION Received is one container labeled with the patient's name and designated appendix. The specimen consists of an appendix measuring 5 cm in length and up to 0.6 cm in diameter. The attached periappendiceal adipose tissue measures up to 1.5 cm in width. The serosa is congested and covered with wiggins, purulent exudate. No obvious perforation is identified. The lumen is pinpoint and no fecalith is identified. [employer] Operator sections are submitted in one cassette. / SJ:ashlie 04/02/19 TC:2 CPT: 16102
[2019-04-01] MEDS: Bupivacaine Mpf 0.5% 30 ML VIAL (20:44)
--- NOTE | 2019-04-01 20:50 | PCM.OPRPT ---
Report of Operation Date of Procedure: 04/01/19 Pre-Operative Diagnosis: Acute appendicitis Post-Operative Diagnosis: Same Surgery/Procedure Performed:: Laparoscopic appendectomy Type of Anesthesia:: General/Supplemental Anesthesiologist: Miguel Dill Special Medications: Zosyn 4.5 g IV x1 given in the ER for acute appendicitis Specimen's removed: Appendix Estimated Blood Loss (mL): < 10 cc Fluids Replaced: 1200 cc Description of Procedure: Indications: 28-year-old female presented to the ER with new right lower quadrant pain this afternoon. On workup she was found to have acute appendicitis on CT and white blood count within normal limits. Patient was started on antibiotics in the ER for acute appendicitis-Zosyn 4.5 g IV x1 Description of the procedure: The patient was placed on operating table in supine position. General anesthesia was induced. A timeout was completed verifying correct patient, procedure, position and special equipment prior to beginning procedure. A Pantoja catheter was placed. Abdomen was prepped and draped in usual sterile fashion. Incision was made in the natural skin line above the umbilicus with a 15 blade scalpel. The fascia was elevated and incised. Entry into the peritoneum was confirmed visually and no bowel was noted in the vicinity of the incision. The Oneal trocar was placed under direct vision. Abdomen insufflated with a pressure of 12-15 mmHg. Patient tolerated insertion well. The scope was inserted and the abdomen inspected. No injuries from initial trocar placement were noted. Minimal amount of fluid was seen in the right lower quadrant. An direct visualization 2 -5 mm trocars were placed one above the symphysis pubis and below the hairline and one in the left lower quadrant lateral to the rectus muscle. Care is taken to avoid injury to the bladder and inferior epigastric vessels. The table was placed in Trendelenburg position with the right side elevated. The appendix was grasped with atraumatic grasper and elevated. It was noted to be inflamed. A window was developed in the mesoappendix at the point between the base of the appendix and the cecum. An endoscopic 45 mm linear cutting stapler blue load was then used to divide and staple the base of the appendix. The mesoappendix was divided with the Enseal. The appendix was withdrawn into the Oneal trocar after being placed endoscopically retrieval bag. Appendix was sent to pathology. The appendiceal stump was then irrigated and hemostasis was assured. Fluid was suctioned no other pathology was identified. Secondary trochars were removed under direct visualization. No bleeding was noted trocar sites. The laparoscope withdrawn and the umbilical trocar removed. The abdomen was allowed to collapse. Local anesthesia of 21 mL of 0.5% Marcaine was used at the incision sites. The umbilical trocar site was closed with the [id number] 0 Vicryl suture. The skin was closed up to clear sutures of 4-0 Monocryl and Steri-Strips. The patient was extubated. The patient tolerated the procedure well and was taken to the postanesthesia care unit in satisfactory condition. - Complications None
[2019-04-01] MEDS: Lactated Ringers 1,000 ML 125 ML IV (21:08)
--- NOTE | 2019-04-01 21:20 | SUR.PHASEI ---
PT STATES ,MORPHINE DOES NOT WORK FOR HER, PAIN LEVEL 4-5.
[2019-04-01] MEDS: Morphine 2 MG/ML Syringe IV (21:53)
[2019-04-02] VITALS: BP 108/64; PULSE 99; RESP 18; TEMP 36.7; O2SAT 97
[2019-04-02] MEDS: Morphine 4 MG/ML Syringe IV ×2 (00:17→04:59)
[2019-04-02 02:30] VITALS: BP 96/50; PULSE 99; RESP 18; TEMP 36.7; O2SAT 97
[2019-04-02] MEDS: Lactated Ringers 1,000 ML 125 ML IV (02:35)
[2019-04-02] MEDS: oxyCODONE 5 MG Tablet PO ×2 (03:55→08:05)
[2019-04-02 05:00] VITALS: BP 102/60; PULSE 88; RESP 16; TEMP 36.7; O2SAT 100
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
--- NOTE | 2019-04-02 07:30 | DCINST_ITS ---
Discharge Diet: No Restrictions Discharge Activity: May not drive while taking narcotic pain medications. May shower in (days): 1 Lifting Restrictions: No lifting greater than 20 pounds x 2 weeks Call your doctor if your incision/area has: Continuous Slow Oozing, Sudden Increased Bleeding, Increased Pain/ Swelling, Increased Redness, Foul Smelling Discharge, Swelling at the incision site Additional Instructions: Okay to take ibuprofen 400-600 mg PO q6hr PRN along with the Percocet. Avoid Tylenol since there is already Tylenol in the Percocet. Take all pain meds with food. Percocet can cause constipation recommend taking daily stool softener (i.e. Colace/docusate) while taking the pain meds. Recommend starting some MiraLAX in 1 to 2 days if no bowel movement. If still no bowel movement the following day recommend taking magnesium citrate half the bottle and waiting 4-6 hours if still no results take the other half the bottle. Medications to take at Discharge Levothyroxine [Synthroid] 50 mcg PO DAILY 04/24/17 sertraline 100 mg tablet 100 mg PO DAILY 01/06/18 Ondansetron [Zofran Odt] 4 mg PO Q8H PRN PRN #10 tab 01/07/18 Oxycodone HCl/Acetaminophen [Percocet 5/325] 1 - 2 tablet PO Q6H PRN PRN 5 Days #20 tablet 04/02/19 Allergies/Adverse Reactions: Allergies cephalexin [From Keflex] Adverse Reaction (Mild, Verified 04/01/19 16:32) Diarrhea fluoxetine HCl [From Prozac] Adverse Reaction (Verified 04/01/19 16:32) pancreatitis The following prescriptions were given: Oxycodone HCl/Acetaminophen [Percocet 5/325] 1 - 2 tablet PO Q6H PRN PRN 5 Days #20 tablet PRN Reason: Pain Transmission Status: Sent to [facility] Primary Care Physician: Earnest Henson MD [Primary Care Provider] - Test Results: Test results from this visit will be discussed in further detail at your follow- up appointment, if applicable. Please Follow Up With: Soo Troy MD - After 5 PM on the weekends call [phone] with any concerns When: Follow-up appointment in 2 weeks call for an appointment Proposed Discharge Date: 04/02/19
[2019-04-02 07:53] VITALS: BP 103/56; PULSE 87; RESP 18; TEMP 36.6; O2SAT 98
[2019-04-02 08:50] VITALS: BP 103/56; PULSE 87; RESP 18; TEMP 36.6; O2SAT 95
== END 2019-04-02 08:52 | disposition home or self-care (01) ==
LOC: ED 18:36 → MS3 04-02 07:41
PROVIDERS: Emergency Medicine; Admitting Provider Surgery; Emergency Provider Emergency Medicine; Family Provider Family Medicine; PCP Family Medicine; Referring Provider Surgery; Visit Provider Surgery
PROC: 0DTJ4ZZ Resection of Appendix, Percutaneous Endoscopic Approach (ICD-10-PCS; CPT 44970; principal; 2019-04-01 20:00)
DX: K35.80 Unspecified acute appendicitis (principal); F32.9 Major depressive disorder, single episode, unspecified; F41.9 Anxiety disorder, unspecified; Z79.899 Other long term (current) drug therapy; G47.30 Sleep apnea, unspecified; K21.9 Gastro-esophageal reflux disease without esophagitis
CPT/HCPCS: 44970; 74177; 80053; 81001; 81025; 83690; 85025; 88304; 96361; 96374; 96375; 96376; 99218; 99284; J7030; J7120; Q9967; A4216; C1760; G0378; J2405

== ENCOUNTER → 2019-05-28 16:08 | Outpatient (CLI) | payer OTHER, SELFPAY ==
[2019-04-16 17:28] VITALS: BMI 37.0
[2019-05-28 17:56] LABS: Progesterone Level 18.84 ng/mL (See Comment)
== END ==
PROVIDERS: PCP Family Medicine; Visit Provider Obstetrics & Gynecology
DX: N97.0 Female infertility associated with anovulation (principal)
CPT/HCPCS: 36415; 84144

== ENCOUNTER → 2019-06-04 16:02 | Outpatient (CLI) | payer OTHER, SELFPAY ==
[2019-06-02 10:21] VITALS: BMI 37.0
[2019-06-04 17:10] LABS: hCG Titer Quant., Serum 3 mIU/mL (1-3)
== END ==
PROVIDERS: PCP Family Medicine; Visit Provider Obstetrics & Gynecology
DX: N91.2 Amenorrhea, unspecified (principal)
CPT/HCPCS: 36415; 84702

== ENCOUNTER → 2019-06-29 16:39 | Outpatient (CLI) | payer OTHER, SELFPAY ==
[2019-06-02 10:21] VITALS: BMI 37.0
[2019-06-29 18:06] LABS: Progesterone Level 7.55 ng/mL (See Comment)
== END ==
PROVIDERS: PCP Family Medicine; Referring Provider Obstetrics & Gynecology; Visit Provider Obstetrics & Gynecology
DX: N92.6 Irregular menstruation, unspecified (principal)
CPT/HCPCS: 36415; 84144

== ENCOUNTER 2019-08-09 10:03 | Outpatient (RCR) | payer OTHER, SELFPAY ==
[2019-06-02 10:21] VITALS: BMI 37.0
[2019-08-06 11:03] LABS: hCG Titer Quant., Serum 52 mIU/mL (1-3)
[2019-08-09 10:42] LABS: hCG Titer Quant., Serum 183 mIU/mL (1-3)
[2019-08-11 08:09] LABS: Progesterone Level 152.51 ng/mL (See Comment)
== END 2019-08-16 18:00 | disposition home or self-care (01) ==
LOC: LAB 10:03
PROVIDERS: PCP Family Medicine; Referring Provider Obstetrics & Gynecology; Visit Provider Obstetrics & Gynecology
DX: N91.2 Amenorrhea, unspecified (principal)
CPT/HCPCS: 36415; 84144; 84702

== ENCOUNTER → 2019-09-20 15:17 | Outpatient (CLI) | payer OTHER, SELFPAY ==
[2019-06-02 10:21] VITALS: BMI 37.0
[2019-09-20 16:50] LABS: Color, Urine Yellow (Yellow); Glucose, Dipstick Normal (Normal); Ketone-Dipstick 5 mg/dl (Negative); Leukocyte Esterase-Dipstick Negative /ul (Negative); Nitrite-Dipstick Negative (Negative); Occult Blood-Urine 25 /ul (Negative); Protein-Dipstick Negative (Negative); Specific Gravity, Urine 1.015 (1.002-1.030); Urine Bilirubin Dipstick Negative (Negative); Urine Clarity Cloudy (Clear); Urine Urobilinogen Normal (Normal)
[2019-09-20 16:58] LABS: Absolute Lymphocyte Count 2.31 X10^3/uL (0.83-4.51); Absolute Neutrophil Count 6.3 X10^3/uL (2.0-7.7); Basophil# 0.03 X10^3/uL; Basophil% 0.3 % (0-1); Eosinophil# 0.15 X10^3/uL; Eosinophils% 1.6 % (0-5); Hematocrit 37.7 % (37-47); Hemoglobin 12.3 g/dL (12.0-15.0); Lymphocyte # 2.31 X10^3/ul (4.0); Lymphocyte % 24.4 % (19-41); Mean Corp Hgb Conc 32.6 g/dL (32-36); Mean Corpuscular Hgb 29.6 pg (27.0-32.0); Mean Corpuscular Volume 90.8 fL (81-99); Mean Platelet Vol. 10.4 fl (6.2-12.0); Monocyte# 0.61 X10^3/uL; Monocyte% 6.4 % (0-10); NRBC Flagged by Analyzer 0 % (0-5); Neutrophil # 6.34 X10^3/uL (2.7-7.7); Neutrophil % 67.1 % (47-70); Platelet Count 278 K/mm3 (150-450); RBC Distribution Width CV 13.4 % (11.6-14.6); RBC Distribution Width SD 44.1 fl (35.1-43.9); Red Blood Count 4.15 M/mm3 (4.2-5.4); White Blood Count 9.5 K/mm3 (4.4-11.0)
[2019-09-20 17:18] LABS: Thyroid Stim Hormone (TSH) 0.33 uIU/mL (0.358-3.74)
[2019-09-20 17:21] LABS: Amphetamine Urine VISTA NEGATIVE (<1000 ng/mL); Barbiturate Urine VISTA NEGATIVE (< 200 ng/mL); Benzodiazepine Urine VISTA NEGATIVE (< 200 ng/mL); Cocaine Urine VISTA NEGATIVE (< 300 ng/mL); Ecstacy Urine VISTA NEGATIVE (< 500 ng/mL); Methadone Urine VISTA NEGATIVE (< 300 ng/mL); PCP Urine VISTA NEGATIVE (< 25 ng/mL); THC Urine VISTA NEGATIVE (< 50 ng/mL); Vista UDS pH Range 6
[2019-09-21 10:39] LABS: HIV - WCH Non-Reactive (Nonreactive); Hepatitis B Surface Antigen Non-Reactive (Nonreactive); Hepatitis C Antibody Non-Reactive (Nonreactive); Rubella IgG 68.3 IU/mL
[2019-09-27 01:56] LABS: Prenatal RPR NONREACTIVE (NONREACTIVE)
== END ==
PROVIDERS: PCP Family Medicine; Visit Provider Obstetrics & Gynecology
DX: Z34.81 Encounter for supervision of other normal pregnancy, first trimester (principal)
CPT/HCPCS: 36415; 80307; 81002; 84443; 85025; 86703; 86762; 86803; 87340

== ENCOUNTER → 2019-10-18 15:32 | Outpatient (CLI) | payer OTHER, SELFPAY ==
[2019-06-02 10:21] VITALS: BMI 37.0
[2019-10-18 18:03] LABS: Color, Urine Yellow (Yellow); Glucose, Dipstick Normal (Normal); Ketone-Dipstick 5 mg/dl (Negative); Protein-Dipstick 100 mg/dl (Negative); Urine Bilirubin Dipstick Negative (Negative); Urine Clarity Sl Cloudy (Clear)
[2019-10-18 18:04] LABS: Leukocyte Esterase-Dipstick 500 /ul (Negative); Nitrite-Dipstick Negative (Negative); Occult Blood-Urine Negative /ul (Negative); Urine Urobilinogen 1 mg/dl (Normal)
== END ==
PROVIDERS: PCP Family Medicine; Visit Provider Obstetrics & Gynecology
DX: N39.0 Urinary tract infection, site not specified (principal); O26.852 Spotting complicating pregnancy, second trimester; Z3A.00 Weeks of gestation of pregnancy not specified
CPT/HCPCS: 81002; 87086; 87088

== ENCOUNTER 2019-11-25 08:30 | Emergency (ER) | payer OTHER, SELFPAY ==
[2019-06-02 10:21] VITALS: BMI 37.0
[2019-11-25 08:31] VITALS: BP 125/78; PULSE 110; RESP 17; TEMP 36.4; O2SAT 99; BMI 41.3
[2019-11-25 08:42] VITALS: RESP 16
[2019-11-25 08:58] LABS: Mucous, Urine 0 SEEN /hpf (<or=2+); Red Blood Cells-Urine 0 SEEN /hpf (0-5); White Blood Cells 0 SEEN /hpf (0-5)
[2019-11-25 09:07] LABS: Color, Urine Yellow (Yellow); Glucose, Dipstick Normal (Normal); Ketone-Dipstick Negative (Negative); Leukocyte Esterase-Dipstick Negative /ul (Negative); Nitrite-Dipstick Negative (Negative); Occult Blood-Urine Negative /ul (Negative); Protein-Dipstick Negative (Negative); Specific Gravity, Urine 1.005 (1.002-1.030); Urine Bilirubin Dipstick Negative (Negative); Urine Clarity Clear (Clear); Urine Urobilinogen Normal (Normal)
[2019-11-25 09:17] LABS: Bacteria 1+ /hpf (None Seen); Squamous Epithelial Cells - UA 0-5 SEEN /hpf (5-10)
--- NOTE | 2019-11-25 09:24 | ED.VIS.FEGU ---
History of Present Illness Chief Complaint: Abd Pain Informant: Patient Narrative: Patient presenting for evaluation secondary to abdominal pain. Patient has a past history of appendectomy and cholecystectomy. She is a G4, P1 at 19 weeks 6 days. Patient reports that she had a mild amount of abdominal discomfort last night. She reports that she accidentally slept on her stomach, and when she woke up this morning she was having diffuse abdominal cramping. This is not localized, she states it was coming and going and was not necessarily rhythmic or able to be timed. Patient denies that she is having any sort of vaginal bleeding or discharge. She does report that she has been feeling some movement, and this is unchanged. Patient tells me that she is type O+ blood. Patient was concerned because in her first where she had a live she had early labor that required cessation of labor at 24 weeks, and then she subsequently had 2 miscarriages. Patient denies recent illness such as fever nausea vomiting diarrhea constipation. She denies any urinary signs or symptoms. Review of systems otherwise negative. Past Medical History - Allergies and Home Meds Allergies/Adverse Reactions: Allergies cephalexin [From Keflex] Adverse Reaction (Mild, Verified 11/25/19 08:30) Diarrhea fluoxetine HCl [From Prozac] Adverse Reaction (Verified 11/25/19 08:30) pancreatitis Primary Care Physician: Earnest Henson MD [Primary Care Provider] - Prior records reviewed: Yes Past Medical History: None Surgical History: appendectomy, cholecystectomy - Laparoscopic 2017, - - Colonoscopy, EGD, breast reduction, , tonsillectomy, and the ears when she was younger Lives: Spouse/ Significant Other Smoking Status: Never smoker Alcohol: None Drugs: None - Family History Maternal Family History: Family History (Last Reviewed 06/02/19 @ 10:21 by Yael Ovalle) Mother Thyroid disorder Father Diabetes Hypertension Other Anemia CHF (congestive heart failure) Cancer Kidney disease Family History: Reports: Cancer - Breast ca Review of Systems All systems negative except as indicated General: Denies: Chills, Fever, Sweats Eyes: Denies: Visual changes - bilaterally, Diplopia ENT: Denies: Rhinorrhea, Sore throat Cardiovascular: Denies: Chest pain, Palpitations Respiratory: Denies: Dyspnea, Cough, Dyspnea on exertion Gastrointestinal: Reports: Abdominal pain Genitourinary: Denies: Dysuria, Hematuria, Frequency Musculoskeletal: Denies: Back pain, Extremity Pain Skin: Denies: Rash, Wounds Neurological: Denies: Headache, Weakness, Numbness Physical Exam Vital Signs/Narrative: Vital Signs Temp Pulse Resp BP Pulse Ox 11/25/19 08:42 16 11/25/19 08:31 97.5 F L 110 H 17 125/78 H 99 Inital Vital Signs reviewed: Yes General: Well nourished, Well developed Head: Normocephalic, Atraumatic Eyes: Perrl, EOMI ENT: Moist mucous membranes, No rhinorrhea Neck: Supple, Nontender Cardiovascular: Regular rhythm, No murmurs, Tachycardia Respiratory: No distress, CTA bilaterally, Chest nontender Abdomen: Soft, Nontender, Nondistended, Normal bowel sounds Back: Nontender, Normal Inspection Extremities: Nontender, No edema Skin: Normal color, No rash Neurological: Alert, Oriented x3, Cranial nerves II-XII grossly intact, Normal Strength, Normal Sensation Psychological: Normal affect Diagnostic/Tx/Re-eval Laboratory Data 11/25/19 08:50 Urine Color Yellow Urine Clarity Clear Urine pH 7.0 Ur Specific [place] 1.005 Urine Protein Negative Urine Glucose (UA) Normal Urine Ketones Negative Urine Occult Blood Negative Urine Nitrite Negative Urine Bilirubin Negative Urine Urobilinogen Normal Ur Leukocyte Esterase Negative Urine RBC 0 SEEN Urine WBC 0 SEEN Ur Squamous Epith Cells 0-5 SEEN Urine Bacteria 1+ Urine Mucus 0 SEEN - Medical Decision/Diagnostic Studies Patient presented secondary to abdominal cramping. She has benign abdomen, no localized pain, I am not concerned for surgical pathology. Likewise she does not even have a gallbladder and appendix to be worried about at this point she does not have any presentation of bowel obstruction or any other pathology that would require blood work or imaging. I performed a bedside ultrasound on the patient, she has a that appears to be progressing per her stated gestational age, there was active vigorous movement and heart tones of 150. Urinalysis was obtained and shows no evidence of infection. I discussed patient's case with covering IDENTIFICATION AND RECORDS COMMANDER, Dr. Brandon Sheth, and we are in agreement that given the patient's benign abdomen and the fact that she is not having rhythmic abdominal pain that this is unlikely to be early labor. Patient does not require cardio toco monitoring at this time. Patient was given reassurance, she was informed that should her abdominal pain become worse, or rhythmic she would require to go to labor and delivery. She voiced understanding of this. Patient was discharged in stable condition. ED Disposition - Plan for ED Patient: Disposition: Home or Assisted Living Diagnosis: [place] Walker contractions Instructions: ED Labor False Referrals: Kj Lopez MD [STAFF PHYSICIAN] - Keep Zonia appointment Additional Instructions: Drink plenty of fluids today. Return for rhythmic abdominal cramping, worsening pain, loss of fluid, or vaginal bleeding.
[2019-11-25 09:33] VITALS: PULSE 100; RESP 16; O2SAT 99
--- NOTE | 2019-11-25 09:33 | ED.RN ---
REVIEWED D/C INSTRUCTIONS, FOLLOW UP CARE, AND S/S THAT WOULD WARRANT A RETURN TO THE ED WITH PT. PT VERBALIZED AN UNDERSTANDING AND DENIES FURTHER QUESTIONS FOR THIS RN. PT SKIN P/W/D, RESP EVEN AND UNLABORED, PT A&O X 3, NO DISTRESS NOTED. PT AMBULATED OUT OF ED, GAIT STEADY.
== END 2019-11-25 09:34 | disposition home or self-care (01) ==
PROVIDERS: Emergency Provider Emergency Medicine; PCP Family Medicine
DX: O47.9 False labor, unspecified (principal); Z3A.19 19 weeks gestation of pregnancy
CPT/HCPCS: 81001; 99282

== ENCOUNTER → 2020-01-01 09:19 | Outpatient (CLI) | payer OTHER, SELFPAY ==
[2020-01-01 10:51] LABS: Glucose Challenge Gest 1H 50g 183 mg/dL (70-140)
[2020-01-01 10:54] LABS: Hematocrit 34.2 % (37-47); Mean Corp Hgb Conc 32.2 g/dL (32-36); Mean Corpuscular Volume 93.2 fL (81-99); Mean Platelet Vol. 10.8 fl (6.2-12.0); Platelet Count 228 K/mm3 (150-450); RBC Distribution Width CV 13.1 % (11.6-14.6); RBC Distribution Width SD 44.7 fl (35.1-43.9); Red Blood Count 3.67 M/mm3 (4.2-5.4); White Blood Count 8.6 K/mm3 (4.4-11.0)
== END ==
PROVIDERS: PCP Family Medicine; Visit Provider Student in an Organized Health Care Education/Training Program
DX: Z34.82 Encounter for supervision of other normal pregnancy, second trimester (principal)
CPT/HCPCS: 36415; 82950; 85027

== ENCOUNTER → 2020-01-07 06:59 | Outpatient (CLI) | payer OTHER, SELFPAY ==
[2020-01-07 08:39] LABS: Glucose GTT-Gestation. Fasting 91 mg/dL (<105)
[2020-01-07 09:38] LABS: Glucose GTT-Gestational 1 Hr 193 mg/dL (<190)
[2020-01-07 10:26] LABS: Glucose GTT-Gestational 2 Hr 183 mg/dL (<165)
[2020-01-07 11:04] LABS: Glucose GTT-Gestational 3 Hr 139 L (<145)
== END ==
PROVIDERS: PCP Family Medicine; Referring Provider Obstetrics & Gynecology; Visit Provider Obstetrics & Gynecology
DX: O24.912 Unspecified diabetes mellitus in pregnancy, second trimester (principal); Z3A.00 Weeks of gestation of pregnancy not specified
CPT/HCPCS: 36415; 82951; 82952

== ENCOUNTER 2020-01-16 14:56 | Outpatient (RCR) | payer OTHER, SELFPAY | END 2020-01-16 23:59 | LOC: DC 14:56 | PROVIDERS: PCP Family Medicine; Visit Provider Obstetrics & Gynecology | DX: Z71.3 Dietary counseling and surveillance (principal); O24.410 Gestational diabetes mellitus in pregnancy, diet controlled; Z3A.00 Weeks of gestation of pregnancy not specified | CPT/HCPCS: G0108 ==

== ENCOUNTER 2020-02-06 13:00 | Outpatient (RCR) | payer OTHER, SELFPAY | END 2020-02-06 23:59 | disposition home or self-care (01) | LOC: DC 13:00 | PROVIDERS: PCP Family Medicine; Visit Provider Obstetrics & Gynecology | DX: Z71.3 Dietary counseling and surveillance (principal); O24.410 Gestational diabetes mellitus in pregnancy, diet controlled; Z3A.00 Weeks of gestation of pregnancy not specified | CPT/HCPCS: 97802 ==

== ENCOUNTER → 2020-02-13 14:37 | Outpatient (CLI) | payer OTHER, SELFPAY | PROVIDERS: PCP Family Medicine; Visit Provider Obstetrics & Gynecology | DX: Z34.83 Encounter for supervision of other normal pregnancy, third trimester (principal); N39.0 Urinary tract infection, site not specified | CPT/HCPCS: 87086; 87088 ==

== ENCOUNTER → 2020-02-28 15:13 | Outpatient (CLI) | payer OTHER, SELFPAY ==
[2020-02-28 16:22] LABS: T4 Free Direct 0.96 ng/dL (0.76-1.46); Thyroid Stim Hormone (TSH) 0.75 uIU/mL (0.358-3.74)
== END ==
PROVIDERS: PCP Family Medicine; Visit Provider Obstetrics & Gynecology
DX: Z34.83 Encounter for supervision of other normal pregnancy, third trimester (principal); E03.9 Hypothyroidism, unspecified
CPT/HCPCS: 36415; 84439; 84443

== ENCOUNTER 2020-02-29 19:30 | Outpatient (CLI) | payer OTHER, SELFPAY ==
[2020-02-29 19:51] VITALS: BP 114/69; PULSE 76
[2020-02-29 20:03] VITALS: BMI 40.4
[2020-02-29 20:15] VITALS: BP 114/69; PULSE 84; TEMP 36.8; O2SAT 98
[2020-02-29 20:47] LABS: ROM Internal Control Test YES-OK TO RESULT pt. (Internal QC); ROM Patient Test Negative (Negative)
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
== END 2020-02-29 21:25 | disposition home or self-care (01) ==
LOC: WPOUT 19:37 → WP 03-03 08:24
PROVIDERS: PCP Family Medicine; Visit Provider Obstetrics & Gynecology
DX: O47.03 False labor before 37 completed weeks of gestation, third trimester (principal); Z3A.33 33 weeks gestation of pregnancy
CPT/HCPCS: 59025; 59050; 84112; 99218; G0378

== ENCOUNTER 2020-03-03 15:50 | Outpatient (CLI) | payer OTHER, SELFPAY ==
[2020-03-03 15:55] VITALS: BMI 40.6
[2020-03-03 16:00] VITALS: TEMP 36.3
[2020-03-03 16:04] VITALS: BP 107/62; PULSE 70
--- NOTE | 2020-03-04 21:11 | PCM.PN.BLA ---
Progress Note Triage visit for NST. GDMA2. 145/mod isaias/+accel/n odecel. Irregular ctx. REACTIVE
== END 2020-03-03 16:40 | disposition home or self-care (01) ==
LOC: WPOUT 15:53 → WP 15:54
PROVIDERS: PCP Family Medicine; Visit Provider Student in an Organized Health Care Education/Training Program
DX: O62.2 Other uterine inertia (principal); Z3A.00 Weeks of gestation of pregnancy not specified
CPT/HCPCS: 59025; 59050; 99218; G0378

== ENCOUNTER 2020-03-13 14:44 | Outpatient (CLI) | payer OTHER, SELFPAY ==
[2020-03-13 15:02] VITALS: BP 123/75; PULSE 101; TEMP 36.8; O2SAT 98
[2020-03-13 15:15] VITALS: BMI 41.5
[2020-03-13 16:00] LABS: ROM Internal Control Test YES-OK TO RESULT pt. (Internal QC)
[2020-03-13 16:01] LABS: ROM Patient Test Negative (Negative)
[2020-03-13 16:25] VITALS: RESP 18
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
== END 2020-03-13 16:25 | disposition home or self-care (01) ==
LOC: WPOUT 14:46 → WP 14:47
PROVIDERS: PCP Family Medicine; Visit Provider Obstetrics & Gynecology
DX: O47.03 False labor before 37 completed weeks of gestation, third trimester (principal); O99.283 Endocrine, nutritional and metabolic diseases complicating pregnancy, third trimester; E03.9 Hypothyroidism, unspecified; Z3A.36 36 weeks gestation of pregnancy
CPT/HCPCS: 59025; 59050; 84112; 99218; G0378

== ENCOUNTER 2020-03-15 10:06 | Outpatient (CLI) | payer OTHER, SELFPAY ==
[2020-03-15 10:11] VITALS: BMI 41.0
[2020-03-15 10:14] VITALS: BP 113/73; PULSE 88; TEMP 36.8; O2SAT 98
--- NOTE | 2020-03-21 10:29 | PCM.PN.BLA ---
Progress Note TRIAGE NOTE Pt presented for NST for GDMA2. NST REACTIVE. Discharge home with labor precautions.
== END 2020-03-15 10:50 | disposition home or self-care (01) ==
LOC: WPOUT 10:09 → WP 10:10
PROVIDERS: PCP Family Medicine; Referring Provider Student in an Organized Health Care Education/Training Program; Visit Provider Student in an Organized Health Care Education/Training Program
DX: O47.9 False labor, unspecified (principal); Z3A.00 Weeks of gestation of pregnancy not specified
CPT/HCPCS: 59025; 59050; 99218; G0378

== ENCOUNTER 2020-03-19 03:40 | Inpatient (IN) | payer OTHER, SELFPAY ==
[2020-03-19] VITALS (25 sets, daily range): BP systolic 94–131; BP diastolic 55–85; PULSE 67–104; RESP 14–22; TEMP 36.2–37.2; O2SAT 96–100; BMI 40.9
[2020-03-19 03:28] LABS: ROM Internal Control Test YES-OK TO RESULT pt. (Internal QC)
[2020-03-19 03:29] LABS: ROM Patient Test POSITIVE (Negative)
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
[2020-03-19] MEDS: Lactated Ringers 1,000 ML 999 ML IV (04:15)
[2020-03-19 04:22] LABS: Absolute Lymphocyte Count 2.32 X10^3/uL (0.83-4.51); Absolute Neutrophil Count 7.7 X10^3/uL (2.0-7.7); Basophil# 0.04 X10^3/uL; Basophil% 0.4 % (0-1); Eosinophil# 0.08 X10^3/uL; Eosinophils% 0.7 % (0-5); Hematocrit 35.9 % (37-47); Hemoglobin 11.6 g/dL (12.0-15.0); Lymphocyte # 2.32 X10^3/ul (4.0); Lymphocyte % 20.9 % (19-41); Mean Corp Hgb Conc 32.3 g/dL (32-36); Mean Corpuscular Hgb 28.4 pg (27.0-32.0); Mean Corpuscular Volume 87.8 fL (81-99); Mean Platelet Vol. 11.7 fl (6.2-12.0); Monocyte# 0.83 X10^3/uL; Monocyte% 7.5 % (0-10); NRBC Flagged by Analyzer 0 % (0-5); Neutrophil # 7.74 X10^3/uL (2.7-7.7); Neutrophil % 69.8 % (47-70); Platelet Count 208 K/mm3 (150-450); RBC Distribution Width CV 12.9 % (11.6-14.6); RBC Distribution Width SD 41.1 fl (35.1-43.9); Red Blood Count 4.09 M/mm3 (4.2-5.4); White Blood Count 11.1 K/mm3 (4.4-11.0)
[2020-03-19] MEDS: Acetaminophen 500 MG Tablet 1000 MG PO ×3 (04:22→20:02)
[2020-03-19] MEDS: Betamethasone/Betamethasone 30 MG/5 ML Vial 12 MG IM (04:22)
[2020-03-19] MEDS: Lactated Ringers 1,000 ML 150 ML IV (05:30)
[2020-03-19 05:31] LABS: Bedside Glucose 83 mg/dL (70-110)
[2020-03-19 05:40] LABS: Group B Strep DNA By PCR Negative (Negative); Internal Control PASS; Probe Check PASS; Specimen Processing Control PASS
[2020-03-19] MEDS: Sodium Citrate/Citric Acid 30 ML UDC PO (06:48)
--- NOTE | 2020-03-19 07:16 | PCM.OPRPT ---
Delivery Classification: AZALEA Final MILO: 04/15/20 Final MILO Source: US <20 weeks Gestational age: 36 Weeks and 1 Days on car supervisor: Bridget Carter Type of Anesthesia:: Spinal - With Duramorph Date of Procedure: 03/19/20 Pre-Operative Diagnosis: Prior Section, Premature Rupture of Membranes, Gestational Diabetes Type A2, Desires Permanent Sterilization Post-Operative Diagnosis: Prior Section, Premature Rupture of Membranes, Gestational Diabetes Type A2, Desires Permanent Sterilization Description of Procedure: Surgeon: Kj Lopez MD, FACOG Procedure: Repeat Low Transverse Cervical Caesarean Section And Bilateral Tubal Occlusion via Bilateral Salpingectomy, Lysis of Adhesions Findings: Viable male with Apgars of 7/9 in occiput anterior presentation with clear amniotic fluid and normal three-vessel placenta. Dense adhesions between the uterus and anterior abdominal wall. Indication: This is a 29-year-old who presents for her second at 36+ weeks gestation. She presented overnight with spontaneous rupture membranes at home. She received a single dose of steroids. care has otherwise been uneventful except for type A2 gestational diabetes moderately well controlled. The patient has been counseled regarding the risk and indications of this procedure including the possibility of bleeding infection and injury to surrounding structures such as bowel bladder. She also understands the permanent nature of her tubal, the failure rate of 1 to 2%, and the availability of other nonpermanent control options. All questions were answered. Procedure: Patient was taken to the operating room where after spinal anesthesia was placed, the patient was prepped and draped in usual sterile fashion and a Pantoja catheter was placed. The abdomen was entered through the patient's prior Pfannenstiel incision and peritoneum was entered bluntly. Upon entry into the abdominal cavity there was noted to be bands of adhesions which were taken down with cautery and sharp dissection to expose the anterior uterus. After developing a bladder flap on the lower uterine segment a low transverse incision was made on the uterus and head was easily delivered onto the operative field the nose mouth and oropharynx were bulb suctioned. Subsequently a viable male was born with Apgars of 7/9. The umbilical cord was doubly clamped and ligated and infant handed to the nursery personnel who were present for the delivery. Placenta was delivered and noted to be 3 vessels and normal. Uterus was exteriorized and remaining placental tissue was removed. The uterus was then closed in 2 layers first with running locked 0 Vicryl suture followed by a second imbricating layer with 0 Vicryl suture. 0 Vicryl suture was then used in a horizontal mattress interrupted fashion to affect final hemostasis of the uterine incision line. Normal fallopian tubes and ovaries were visualized and then fallopian tubes were removed by ligating the mesosalpinx and tubes with the LigaSure device. The uterus was returned to the pelvis. Hemostasis was noted except for some oozing and Syd was placed across this area to help with hemostasis after ligating some bleeding with [id number] 0 Vicryl suture. Rectus abdominis muscles were reapproximated in the midline with interrupted Number 0 Vicryl suture in a horizontal mattress fashion. Fascia was closed with running Number 1 PDS Strata fix suture. Subcutaneous tissue was irrigated with copious amounts of saline solution and then closed with running 3-0 Vicryl suture. Skin was closed with 4-0 monocryl suture in a running subcuticular fashion. Steri strips and a Mepilex dressing were placed across the incision. The patient tolerated the procedure well and was taken to the recovery room in satisfactory condition. Sponge, needle, and instrument counts were all reportedly correct. EBL was less than 500 cc. Ancef 2 gms IV was given prior to the procedure. Spicemen to Pathology: Bilateral fallopian tubes Complications: None Amniotic Membrane Rupture Type: Spontaneous Amniotic Fluid Description: Clear Placenta Disposition: [facility] Specimen(s) sent to pathology: Bilateral fallopian tubes Drain: Pantoja to straight drain Fluids Replaced: Crystalloid Cord Vessel Description: 3 Vessels Esitmated Blood Loss (ml): 500 cc Gender: Male (1 minute): 7 (5 minute): 9 Antibiotic Given: Ancef 2 grams IV x1 Pt instructed on risks of surgery: Bleeding, Infection, Permanency, Failure Rate of 1 to 2%, Injury to surrounding structure(s) including bowel and bladder, Availability of other non-permanent control options Complications: None - Admit VTE Documentation VTE Present on Admission: Yes VTE Mechan Device Prophylaxis: SCD's VTE Pharm Prophylaxis ordered?: Yes
[2020-03-19] MEDS: Cefazolin 2 GM in 0.9% Normal Saline 100 ML IV (07:18)
--- NOTE | 2020-03-19 07:19 | DCINST_ITS ---
<Kj Lopez - Last Filed: 03/19/20 07:19> Discharge Diet: No Restrictions Discharge Activity: May not drive while taking narcotic pain medications., May Shower, May Take a Tub Bath May resume sexual activity in: 4-6 weeks Lifting Restrictions: 20 pounds Additional Activity Instructions:: Nothing in the vagina for 4-6 weeks. You may return to work/school in 6 weeks. Call your doctor if your incision/area has: Continuous Slow Oozing, Sudden Increased Bleeding, Increased Pain/ Swelling, Increased Redness, Foul Smelling Discharge Call your doctor if you observe: Fever of 101 or Higher, Inability to urinate, Inability to have a bowel movement, Using more than one pad per hour Additional Instructions: If you experience any of the following, contact your healthcare provider. * Bleeding that soaks a pad every hour for 2 hours * Fever 100.4 or higher * Unrelieved incision or abdominal pain * Swelling, redness, discharge or bleeding from your incision or episiotomy site * Your incision begins to separate * Problems urinating (including inability to urinate or burning while urinating). * Visual changes * Severe headache * Flu-like symptoms * Pain or redness in one of both of your breasts * Pain, warmth, tenderness or swelling in your legs, especially the calf area * Frequent nausea and vomiting * Symptoms of depression or anxiety If you experience any of the following, call 911 or go to the nearest Emergency Room. * Chest pain * Problems breathing * Seizure activity * Partial or complete paralysis of a body part, slurred speech, weakness or drooping of the face, or a sudden inability to walk or hold your balance Allergies/Adverse Reactions: Allergies cephalexin [From Keflex] Adverse Reaction (Mild, Verified 03/19/20 02:52) Diarrhea fluoxetine HCl [From Prozac] Adverse Reaction (Verified 03/19/20 02:52) pancreatitis Medications to take at Discharge Levothyroxine [Synthroid] 50 mcg PO DAILY 04/24/17 sertraline 100 mg tablet 100 mg PO DAILY 01/06/18 Glyburide 7.5 mg PO DAILY 02/29/20 Famotidine [Pepcid] 20 mg PO DAILY 03/03/20 Diphenhydramine HCl [Unisom] 50 mg PO PRN PRN 03/19/20 Docusate Sodium [Colace] 100 mg PO BID PRN PRN #60 cap 03/19/20 Ondansetron HCl [Zofran] 4 mg PO PRN PRN 03/19/20 Oxycodone [Oxyir] 5 mg PO Q6H PRN PRN 7 Days #20 tab 03/19/20 The following prescriptions were given: Docusate Sodium [Colace] 100 mg PO BID PRN PRN #60 cap PRN Reason: Constipation Transmission Status: Received by [facility] Oxycodone [Oxyir] 5 mg PO Q6H PRN PRN 7 Days #20 tab PRN Reason: Pain Score 6-10 Transmission Status: Received by [facility] Follow-Up: Call to make an appointment with your doctor for an incision check in 1-2 weeks. You will also need a 6 week post- follow up appointment. Test results from this visit will be discussed in further detail at your follow- up appointment, if applicable. Please Follow Up With: Kj Lopez MD - [phone] When: Call to make an appointment for an incision check in 2 weeks. Primary Care Physician: Earnest Henson MD [Primary Care Provider] - <Ru Bernal - Last Filed: 03/21/20 08:23> Additional Instructions: If you experience any of the following, contact your healthcare provider. * Bleeding that soaks a pad every hour for 2 hours * Fever 100.4 or higher * Unrelieved incision or abdominal pain * Swelling, redness, discharge or bleeding from your incision or episiotomy site * Your incision begins to separate * Problems urinating (including inability to urinate or burning while urinating). * Visual changes * Severe headache * Flu-like symptoms * Pain or redness in one of both of your breasts * Pain, warmth, tenderness or swelling in your legs, especially the calf area * Frequent nausea and vomiting * Symptoms of depression or anxiety If you experience any of the following, call 911 or go to the nearest Emergency Room. * Chest pain * Problems breathing * Seizure activity * Partial or complete paralysis of a body part, slurred speech, weakness or drooping of the face, or a sudden inability to walk or hold your balance Follow-Up: Call to make an appointment with your doctor for an incision check in 1-2 weeks. You will also need a 6 week post- follow up appointment. Test results from this visit will be discussed in further detail at your follow- up appointment, if applicable.
--- NOTE | 2020-03-19 07:30 | FALS_PTH ---
PATIENT: KEMI WILLIS LOC: [facility] U#:[id number] AGE/SX: 29/F ROOM: WP007 RE03/19/[address]: Dr. Kj Lopez MD : 1990 BED: 1 DIS: 03/21/2020 SPEC #: [id number] RECD: 03/19/20 09:33 STATUS: FRANKLIN FRACISCO #: [id number] BREONNA: 03/19/20 07:[address]: Kj Lopez DEPT: SURGICAL PATHOLOGY RECD BY: Sophia Gallegos ENTERED: 03/19/20 12:41 SP TYPE: FALL TUBES OTHR DR: Dr. Earnest Henson MD Tissues: Fallopian tube Procedures: Surgery Specimen Level II HEADER OPERATION: Tubal ligation PRE-OP DIAGNOSIS: Sterilization TISSUE SUBMITTED: Fallopian tubes MICROSCOPIC DIAGNOSIS Bilateral fallopian tubes, salpingectomy: Bilateral fallopian tubes including fimbrial ends, no pathologic diagnosis. SJ:ashlie 03/20/20 MICROSCOPIC DESCRIPTION Slides are reviewed. GROSS DESCRIPTION Received in fixative is one container labeled with the patient's name and designated bilateral fallopian tubes, left with suture. The specimen consists of two fallopian tubes with an average length of 7 cm and has an average diameter of 0.8 cm. Both fallopian tubes have normal fimbriated ends. No mass lesions are identified. Eeg Technologist sections are submitted in two cassettes as follows: 1 - one fallopian tube, 2 - the other fallopian tube. / AM:ashlie 03/19/20 TC:4 CPT: 99539 x2
[2020-03-19] MEDS: Oxytocin 30 units/NS 500 ml 30 UNITS/500 ML IV.SOLN 167 UNITS IV (09:30)
[2020-03-19] MEDS: Sertraline 100 MG Tablet PO (09:30)
[2020-03-19] MEDS: Levothyroxine 50 MCG Tablet PO (09:30)
[2020-03-19 09:31] LABS: Pathology Specimen OB SEE PATHOLOGY REPORT
[2020-03-19 11:06] LABS: Bedside Glucose 102 mg/dL (70-110)
[2020-03-19] MEDS: Lactated Ringers 1,000 ML 100 ML IV (12:27)
[2020-03-19] MEDS: Ketorolac 30 MG/ML Syringe IV ×2 (14:24→20:03)
[2020-03-19 15:12] LABS: Chlamydia Trachomatis by PCR Negative (Negative); Neisserai gonorrhoeae by PCR Negative (Negative); Probe Check PASS; Sample Adequacy Control PASS; Specimen Processing Control PASS
[2020-03-19] MEDS: Cefazolin 1 GM/50 ML BAG IV ×2 (15:13→22:54)
[2020-03-19] MEDS: Enoxaparin 40 MG/0.4 ML Syringe SC (20:03)
[2020-03-19] MEDS: 0.9% Saline Lock 10 ML Syringe IV (23:21)
[2020-03-20 00:25] VITALS: PULSE 69; RESP 18; O2SAT 97
[2020-03-20] MEDS: Acetaminophen 500 MG Tablet 1000 MG PO ×4 (01:44→20:29)
[2020-03-20] MEDS: Ketorolac 30 MG/ML Syringe IV ×2 (01:45→07:47)
[2020-03-20] MEDS: 0.9% Saline Lock 10 ML Syringe IV (01:46)
[2020-03-20 05:00] VITALS: PULSE 79; RESP 16; O2SAT 98
[2020-03-20] MEDS: Levothyroxine 50 MCG Tablet PO (06:04)
[2020-03-20 06:15] LABS: Bedside Glucose 94 mg/dL (70-110)
--- NOTE | 2020-03-20 06:18 | PCM.PN.OB ---
Patient Problems: Active and Suspected Problems (Last Updated 03/19/20 @ 04:[address] Kathrine Sheth MD) Gestational diabetes (Acute) 36 weeks gestation of (Acute) premature rupture of membranes (PPROM) with onset of labor after 24 hours of rupture in first trimester, antepartum (Acute) Subjective: Patient without complaints. Tolerating diet well. Pantoja is out and patient is voiding on her own. Pain well controlled. Denies flatus. Objective: Wound is clean, dry, intact without evidence of bleeding a Mepilex dressing. Good urine output. Hemoglobin this a.m. pending. - Physical Exam Vitals/I&O's: Vital Signs Temp Pulse Resp BP Pulse Ox 98.5 F 69 18 104/69 97 03/19/20 22:58 03/20/20 00:25 03/20/20 00:25 03/19/20 22:58 03/20/20 00:25 Oxygen Delivery Method Room Air Weight: 209 lb 12.8 oz Body Mass Index (BMI) 40.9 Intake and Output for Last 24 Hours 03/18/20 03/19/20 03/20/20 23:59 23:59 23:59 Intake Total 3815.15 / 3815.15 Output Total 2300 / 2300 800 / 800 Balance 1515.15 / 1515.15 -800 / -800 Microbiology Past 72 Hours 03/19/20 04:45 Mucosa - Nose SARS-CoV-2 Antigen (Rapid) - Final Laboratory Results 03/19/20 06:20: Chlam trachomat DNA PCR Negative, N.gonorrhoeae DNA (PCR) Negative 03/19/20 10:12: POC Glucose 102 03/20/20 06:07: POC Glucose 94 Current Medications Acetaminophen (Acetaminophen 500 Mg Tablet) 1,000 mg PO Q6 [facility] Last Admin: 03/20/20 01:44 Dose: 1,000 mg Documented by: Bisacodyl (Bisacodyl 10 Mg Suppository) 10 mg RECTAL UD PRN PRN Reason: If no BM Diphenhydramine HCl (Diphenhydramine 25 Mg Capsule) 25 mg PO Q6H PRN PRN PRN Reason: ITCHING Stop: 03/20/20 09:04 Enoxaparin Sodium (Enoxaparin 40 Mg/0.4 Ml Syringe) 40 mg SC DAILY [facility] Last Admin: 03/19/20 20:03 Dose: 40 mg Documented by: Famotidine (Famotidine 20 Mg Tablet) 20 mg PO DAILY [facility] Last Admin: 03/19/20 11:31 Dose: Not Given Documented by: Hydrocortisone (Hydrocortisone 2.5% Crm) 1 applic TOPICAL TID PRN PRN; Protocol PRN Reason: Discomfort Lactated Ringer's () 1,000 mls @ 100 mls/hr IV .Q10H [facility] Last Infusion: 03/19/20 23:23 Dose: Infused Documented by: Ibuprofen (Ibuprofen 600 Mg Tablet) 600 mg PO Q6H [facility] Ketorolac Tromethamine (Ketorolac 30 Mg/Ml Syringe) 30 mg IV Q6H [facility] Stop: 03/20/20 08:01 Last Admin: 03/20/20 01:45 Dose: 30 mg Documented by: Levothyroxine Sodium (Levothyroxine 50 Mcg Tablet) 50 mcg PO DAILY@0600 [facility] Last Admin: 03/20/20 06:04 Dose: 50 mcg Documented by: Methylergonovine Maleate (Methylergonovine 0.2 Mg/Ml Ampul) 0.2 mg IM X1 PRN PRN Reason: Uterine Atony Nalbuphine HCl (Nalbuphine 10 Mg/Ml Ampul) 5 mg IV Q3H PRN PRN PRN Reason: ITCHING Stop: 03/20/20 09:04 Naloxone HCl (Naloxone 0.4 Mg/Ml Syringe) 0.02 mg IV Q1M PRN PRN Reason: RR <10 and pt unresponsive Ondansetron HCl (Ondansetron 4 Mg/2 Ml Vial) 4 mg IV Q4H PRN PRN PRN Reason: Nausea Oxycodone HCl (Oxycodone 5 Mg Tablet) 5 - 10 mg PO Q4H PRN PRN PRN Reason: Pain Score 4-10 Prochlorperazine Edisylate (Prochlorperazine 10 Mg/2 Ml Vial) 10 mg IV Q6H PRN PRN PRN Reason: NAUSEA Senna/Docusate Sodium (Senna/Docusate Sodium 1 Tablet) 0 tablet PO DAILY [facility] Last Admin: 03/19/20 11:30 Dose: Not Given Documented by: Sertraline HCl (Sertraline 100 Mg Tablet) 100 mg PO DAILY [facility] Last Admin: 03/19/20 09:30 Dose: 100 mg Documented by: Simethicone (Simethicone 80 Mg Tablet) 80 mg PO PCHS PRN PRN Reason: Indigestion/stomach pain Sodium Chloride (0.9% Saline Lock 10 Ml Syringe) 5 - 15 ml IV UD PRN PRN Reason: SALINE FLUSH Last Admin: 03/20/20 01:46 Dose: 10 ml Documented by: Medical Necessity - Tobacco Use Smoking Status: Never smoker Assessment/Plan All Active Problems (Last Updated 03/19/20 @ 05:[address] Kathrine Sheth MD) Gestational diabetes (Acute) 36 weeks gestation of (Acute) premature rupture of membranes (PPROM) with onset of labor after 24 hours of rupture in first trimester, antepartum (Acute) History of tonsillectomy (Acute) History of section (Acute) History of bilateral breast reduction surgery (Acute) History of placement of ear tubes (Acute) Doing well postoperative day #1 status post repeat . Baby in special care nursery for unstable blood sugars. Continuing present care.
[2020-03-20 06:19] LABS: Hemoglobin 9.5 g/dL (12.0-15.0); Mean Corp Hgb Conc 31.7 g/dL (32-36); Mean Corpuscular Hgb 28.4 pg (27.0-32.0); Mean Corpuscular Volume 89.8 fL (81-99); Mean Platelet Vol. 11.5 fl (6.2-12.0); Platelet Count 188 K/mm3 (150-450); RBC Distribution Width CV 12.8 % (11.6-14.6); RBC Distribution Width SD 42.1 fl (35.1-43.9); Red Blood Count 3.34 M/mm3 (4.2-5.4); White Blood Count 11.8 K/mm3 (4.4-11.0)
[2020-03-20 07:40] VITALS: BP 101/65; PULSE 81; RESP 16; TEMP 36.6; O2SAT 100
[2020-03-20] MEDS: Enoxaparin 40 MG/0.4 ML Syringe SC (09:52)
[2020-03-20] MEDS: Sertraline 100 MG Tablet PO (09:52)
[2020-03-20] MEDS: Senna/Docusate Sodium 1 Tablet PO (09:52)
[2020-03-20] MEDS: Ibuprofen 600 MG Tablet PO ×2 (14:52→20:29)
[2020-03-20 14:53] VITALS: BP 111/66; PULSE 94; RESP 18; TEMP 36.7
[2020-03-20 20:24] VITALS: BP 117/74; PULSE 99; RESP 16; TEMP 36.8
[2020-03-21] MEDS: Ibuprofen 600 MG Tablet PO ×3 (02:32→14:24)
[2020-03-21] MEDS: Acetaminophen 500 MG Tablet 1000 MG PO ×3 (02:33→14:57)
[2020-03-21 02:38] VITALS: BP 119/77; PULSE 81; RESP 18; TEMP 36.1; O2SAT 99
[2020-03-21] MEDS: Levothyroxine 50 MCG Tablet PO (06:02)
--- NOTE | 2020-03-21 08:21 | PN.OBGYN_ITS ---
Patient Problems: Active and Suspected Problems (Last Updated 03/19/20 @ 04:[address] Kathrine Sheth MD) Gestational diabetes (Acute) 36 weeks gestation of (Acute) premature rupture of membranes (PPROM) with onset of labor after 24 hours of rupture in first trimester, antepartum (Acute) Subjective: No overnight complaints. pain well controlled - Physical Exam Vitals/I&O's: Vital Signs Temp Pulse Resp BP Pulse Ox 97 F L 81 18 119/77 99 03/21/20 02:38 03/21/20 02:38 03/21/20 02:38 03/21/20 02:38 03/21/20 02:38 Oxygen Delivery Method Room Air Weight: 209 lb 12.8 oz Body Mass Index (BMI) 40.9 Intake and Output for Last 24 Hours 03/19/20 03/20/20 03/21/20 23:59 23:59 23:59 Intake Total 3815.15 / 3815.15 Output Total 2300 / 2300 800 / 800 Balance 1515.15 / 1515.15 -800 / -800 General: Alert, Oriented x3, Cooperative, No apparent distress, Well developed HEENT: Atraumatic, Normocephalic Oral: Moist Mucosa Neck: Supple, No JVD Abdomen: Bowel Sounds Present, Soft, Non Tender, Non-Distended, - - Bandage clean dry and intact. Fundus firm and below umbilicus Extremities: No clubbing, No cyanosis, No edema Neurological: Neuro grossly intact Psych/Mental Status: Normal Affect, Appropriate, Alert and oriented to time, place, person, mood and affect Microbiology Past 72 Hours 03/19/20 04:45 Mucosa - Nose SARS-CoV-2 Antigen (Rapid) - Final Current Medications Acetaminophen (Acetaminophen 500 Mg Tablet) 1,000 mg PO Q6H [facility] Last Admin: 03/21/20 02:33 Dose: 1,000 mg Documented by: Bisacodyl (Bisacodyl 10 Mg Suppository) 10 mg RECTAL UD PRN PRN Reason: If no BM Enoxaparin Sodium (Enoxaparin 40 Mg/0.4 Ml Syringe) 40 mg SC DAILY [facility] Last Admin: 03/20/20 09:52 Dose: 40 mg Documented by: Famotidine (Famotidine 20 Mg Tablet) 20 mg PO DAILY [facility] Last Admin: 03/20/20 09:51 Dose: Not Given Documented by: Hydrocortisone (Hydrocortisone 2.5% Crm) 1 applic TOPICAL TID PRN PRN; Protocol PRN Reason: Discomfort Ibuprofen (Ibuprofen 600 Mg Tablet) 600 mg PO Q6H [facility] Last Admin: 03/21/20 02:32 Dose: 600 mg Documented by: Levothyroxine Sodium (Levothyroxine 50 Mcg Tablet) 50 mcg PO DAILY@0600 [facility] Last Admin: 03/21/20 06:02 Dose: 50 mcg Documented by: Methylergonovine Maleate (Methylergonovine 0.2 Mg/Ml Ampul) 0.2 mg IM X1 PRN PRN Reason: Uterine Atony Naloxone HCl (Naloxone 0.4 Mg/Ml Syringe) 0.02 mg IV Q1M PRN PRN Reason: RR <10 and pt unresponsive Ondansetron HCl (Ondansetron 4 Mg/2 Ml Vial) 4 mg IV Q4H PRN PRN PRN Reason: Nausea Oxycodone HCl (Oxycodone 5 Mg Tablet) 5 - 10 mg PO Q4H PRN PRN PRN Reason: Pain Score 4-10 Prochlorperazine Edisylate (Prochlorperazine 10 Mg/2 Ml Vial) 10 mg IV Q6H PRN PRN PRN Reason: NAUSEA Senna/Docusate Sodium (Senna/Docusate Sodium 1 Tablet) 0 tablet PO DAILY [facility] Last Admin: 03/20/20 09:52 Dose: 1 tablet Documented by: Sertraline HCl (Sertraline 100 Mg Tablet) 100 mg PO DAILY [facility] Last Admin: 03/20/20 09:52 Dose: 100 mg Documented by: Simethicone (Simethicone 80 Mg Tablet) 80 mg PO HS PRN PRN Reason: Indigestion/stomach pain Sodium Chloride (0.9% Saline Lock 10 Ml Syringe) 5 - 15 ml IV UD PRN PRN Reason: SALINE FLUSH Last Admin: 03/20/20 01:46 Dose: 10 ml Documented by: Medical Necessity - Tobacco Use Smoking Status: Never smoker Assessment/Plan All Active Problems (Last Updated 03/19/20 @ 05:[address] Kathrine Sheth MD) Gestational diabetes (Acute) 36 weeks gestation of (Acute) premature rupture of membranes (PPROM) with onset of labor after 24 hours of rupture in first trimester, antepartum (Acute) History of tonsillectomy (Acute) History of section (Acute) History of bilateral breast reduction surgery (Acute) History of placement of ear tubes (Acute) Postop day 2, pain well controlled. Okay to discharge home if okay with burrer hand
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
[2020-03-21 08:52] VITALS: BP 134/85; PULSE 96; RESP 18; TEMP 36.6
[2020-03-21] MEDS: Enoxaparin 40 MG/0.4 ML Syringe SC (10:54)
[2020-03-21] MEDS: Sertraline 100 MG Tablet PO (10:54)
[2020-03-21 14:31] VITALS: BP 131/92; PULSE 88; RESP 18; TEMP 37.1
--- NOTE | 2020-03-21 14:54 | CASEMGMT ---
Social Work Labor and Delivery Unit Date of Intervention:?03.21.2020 Time of Intervention:?1400 ? Referred by:?Social Work identification ? Reason for Referral:?Baby in SCN; maternal history of depression and anxiety ? Presenting situation:?Patient's/Mother of baby (MOB) baby, Naveen Wong was admitted to the [facility] from the hospital of delivery for issues related to hypoglycemia.??Maternal history of depression, anxiety, agitation related to depression, and depression. ? History obtained from:??MOB and the medical record. ??*This real estate underwriter also aware of family history of sibling's stay in the [facility] 5 years ago* ?*This real estate underwriter is the older adult social work specialist for hospital of delivery and for continuity of care of families in the [facility], this real estate underwriter also provides social work services to the SCN at [place]* ? Household composition:?MOB, father of baby (FOB) Ki Wong, and older son. ?Home situation is safe and adequate. ? ? Patient's parent/guardian status:?MOB and FOB are both 28 years old, , and have been together since July 2014. ??MOB denies any form of abuse in this relationship. ??MOB and FOB now share 2 children together: ?[place] baby boy, Naveen Wong ( 03.19.2020); ?Domenic Wong ( 03.20.2015). ?? ? Medical History:?MOB is G2, P1 to 2 after delivering Flint. ?? care started at 6 weeks and regular thereafter. ??Delivery at 36 weeks gestation, weight for Naveen was 7 pounds 3 ounces, and Apgars 7 and 9 at 1 and 5 minutes of life. ???Note, Naveen's older brother, delivered at 34 weeks gestation and spent time at the [facility]. ? Educational Status:?MOB's highest level of education is trade school. ?FOB's is associates degree. ?No issues with reading, writing, or learning comprehension. ? ? Health Care Coverage:?Medical [place] ? 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 ?FOB works for the [employer] [place] [employer]. ? Childcare/Caregiver(s):?MOB and FOB; ?Have childcare in place. ? ? Transportation:?No issues.? ? Programs/Agencies Involved:?No current involvement. ?History of WIC but not currently. ??No reported legal issues, or children services. ? Behavioral Health Issues:?MOB has history of depression, anger, and agitation with depression. MOB endorses history of depression after Domenic was born. ?MOB reports Domenic was in the SCN for a few weeks, HARRY's mom had heart surgery during that time and then for the next 6 months had worsening health issues. ?MOB reports was trying to take care of a baby, her mother, helping with HARRY's disabled sister, and then HARRY's 94 year old grandmother. ?HARRY's mom then . ??With all of this happening MOB reports her depressions worsened. ?Denies any thoughts/plans/intent to harm self or others, but admits there were days that didn't care to get up. MOB reports after some time, she did get on medicine and tried counseling. ?MOB reports to prefer medicine. ??MOB reports is on Zoloft and feels this is helping. ???No reports of any substance use issues for ?MOB. ?Maternal drug screen negative on 09.20.2019. ? ? Family Stressors:?No current stressors reported. ?MOB reports the biggest stress was yesterday when different family members waned to watch Domenic and the family members who did not watch Domenic becoming upset. ?MOB reports it is a new day now, and not feeling stressed out. ?? ? Support Systems:?MOB reports to have a strong support from FOB who will be off of work for 6 week paternity leave. ?MOB's sister is close by and helpful. ?MOB and FOB both have family in the area who are supportive and helpful. ? Assessment Met with MOB in room on the labor and delivery unit. MOB pleasant, cooperative, and agreeable to meet with this real estate underwriter. ?MOB voiced remembering this real estate underwriter from prior social work visits. ?MOB had good eye contact, bright affect, spontaneous conversation. ?MOB reports to feel she is managing her depression well right now, as feels good, is on Zoloft and plans to remain on this. ?MOB reports has already spoken with FOB about FOB speaking up if sees MOB starting to slide downwards into depression so that MOB can see additional support and intervention. ?MOB reports will not wait this time to get help. ?MOB reports to feel a connection to the new baby, and is looking forward for Domneic to meet Flint. ?MOB reports to have needed supplies to care for the baby, to have adequate support, and willingness to seek out additional support if mental health symptoms arise or become distressing. ?[facility] or other social needs arise. ??Provided MOB with packet on mood and anxiety disorders, reviewing resources for support. ?MOB accepting and voiced receptivity to having this information. No voiced concerns by nursing staff regarding parental engagement with the baby. ? ? Plan Baby Flint will be discharge home to parents. ?MOB has been provided with resources for home going, in case the needs arises for such in the future. ? ? ?Response to Plan: MOB?does express understanding of proposed plan.??No further needs requested or indicated.?? ? DAYANNA Frederick 03/21/2020?
== END 2020-03-21 14:58 | disposition home or self-care (01) | DRG 784 ==
LOC: OBT 06:56 → WP 06:56
PROVIDERS: Obstetrics & Gynecology; Admitting Provider Obstetrics & Gynecology; PCP Family Medicine; Referring Provider Obstetrics & Gynecology; Visit Provider Obstetrics & Gynecology
DX: O34.211 Maternal care for low transverse scar from previous cesarean delivery (principal); F32.2 Major depressive disorder, single episode, severe without psychotic features; Z37.0 Single live birth; Z3A.36 36 weeks gestation of pregnancy; Z30.2 Encounter for sterilization; O24.429 Gestational diabetes mellitus in childbirth, unspecified control; Z86.19 Personal history of other infectious and parasitic diseases; O99.284 Endocrine, nutritional and metabolic diseases complicating childbirth; E03.9 Hypothyroidism, unspecified; O99.344 Other mental disorders complicating childbirth; K66.0 Peritoneal adhesions (postprocedural) (postinfection)
CPT/HCPCS: 59025; 59050; 82962; 84112; 85025; 85027; 86850; 86900; 86901; 87081; 87426; 87491; 87591; 87653; 88302; 99218; J7120; A4216; G0378; J0702; J2405

== ENCOUNTER → 2020-05-12 15:16 | Outpatient (CLI) | payer OTHER, SELFPAY ==
[2020-03-19 02:51] VITALS: BMI 40.9
[2020-05-12 18:16] LABS: Thyroid Stim Hormone (TSH) 1.14 uIU/mL (0.358-3.74)
== END ==
PROVIDERS: PCP Family Medicine; Visit Provider Family Medicine
DX: E03.9 Hypothyroidism, unspecified (principal)
CPT/HCPCS: 36415; 84443

== ENCOUNTER → 2020-08-07 10:23 | Outpatient (CLI) | payer OTHER, SELFPAY ==
[2020-08-03 13:00] VITALS: BMI 40.6
[2020-08-07 13:41] LABS: Free T3 1.9 pg/mL (2.18-3.98); T4 Free Direct 0.76 ng/dL (0.76-1.46); Thyroid Stim Hormone (TSH) 1.32 uIU/mL (0.358-3.74)
== END ==
PROVIDERS: PCP Family Medicine; Visit Provider Family Medicine
DX: E03.9 Hypothyroidism, unspecified (principal)
CPT/HCPCS: 36415; 84439; 84443; 84481

== ENCOUNTER → 2021-01-22 08:31 | Outpatient (CLI) | payer OTHER, SELFPAY ==
--- NOTE | 2021-01-22 08:44 | BI_ITS ---
MAMMOGRAPHY - BILATERAL DIAGNOSTIC REASON FOR EXAM: Female, 30 years old. LUMP RIGHT SIDE PERTINENT HISTORY: Non-contributory. TECHNIQUE: Digital examination. Mediolateral oblique (MLO) and craniocaudad (CC) views of both breasts were obtained. CAD: CAD was performed on this study. COMPARISON: None. FINDINGS: Breast Composition: There are scattered areas of fibroglandular density. There are no dominant masses or suspicious calcifications. No other significant abnormalities are identified. BI/DIAG MAMM W/CAD, BILAT IMPRESSION: Stable bilateral diagnostic mammogram. Ultrasound of the palpable abnormality in the right breast will be obtained. ASSESSMENT CATEGORY: BIRADS Category 0: Incomplete. Need additional imaging evaluation. A letter regarding these results will be sent to the patient by the facility within 30 days. FOLLOW UP RECOMMENDATION: Ultrasound Recommended. (I) Approximately 10% of breast cancers are not detected by mammography. A normal mammogram should not delay biopsy of a clinically suspicious abnormality. Electronically Signed: Gurjit Calderon MD at 9:32 EDT Tel , Service support ,
--- NOTE | 2021-01-22 10:02 | US_ITS ---
STUDY: ULTRASOUND BREAST - RIGHT REASON FOR EXAM: Female, 30 years old. Palpable mass TECHNIQUE: Axial and longitudinal images of the RIGHT breast were performed with a high resolution ultrasound transducer. # OF IMAGES: 43 COMPARISON: Diagnostic mammogram earlier today FINDINGS: RIGHT Breast: Heterogeneous background echotexture. Multiple longitudinal and transverse ultrasound images of the lateral right breast fail to demonstrate a discrete solid or cystic mass.: US/Breast Limited Unilateral IMPRESSION: Normal diagnostic mammogram and right breast ultrasound. However, biopsy of any palpable abnormality should be performed if clinically indicated. ASSESSMENT CATEGORY: BIRADS Category 1: Negative. A letter regarding these results will be sent to the patient by the facility within 30 days. Electronically Signed: Gurjit Calderon MD at 10:56 EDT Tel , Service support ,
== END ==
PROVIDERS: PCP Internal Medicine; Referring Provider Obstetrics & Gynecology; Visit Provider Obstetrics & Gynecology
DX: N63.13 Unspecified lump in the right breast, lower outer quadrant (principal)
CPT/HCPCS: 76642; 77062; 77066; G0279

== ENCOUNTER 2021-05-22 13:53 | Outpatient (CLI) | payer OTHER, SELFPAY ==
--- NOTE | 2021-05-22 13:58 | RAD_ITS ---
STUDY: X-RAY - ABDOMEN/PELVIS REASON FOR EXAM: Female, 30 years old. HEMATURIA TECHNIQUE: Single AP view of the abdomen / pelvis. COMPARISON: None. FINDINGS: Normal visualized lung bases. There is an unremarkable bowel gas pattern. The visualized liver, spleen and kidneys are grossly normal in size and morphology. There are calcified phleboliths in the pelvis. Normal visualized osseous structures. RAD/Abdomen Single View IMPRESSION: Normal x-ray examination of the abdomen and pelvis. Electronically Signed: Giles Thao MD at 14:56 EST ,
== END 2021-05-22 23:59 | disposition short-term general hospital (02) ==
PROVIDERS: PCP Internal Medicine; Referring Provider Internal Medicine; Visit Provider Internal Medicine
DX: R31.9 Hematuria, unspecified (principal)
CPT/HCPCS: 74018

== ENCOUNTER 2021-06-04 10:47 | Outpatient (CLI) | payer OTHER, SELFPAY ==
--- NOTE | 2021-06-04 | CYSPIN_PTH ---
PATIENT: KEMI WILLIS LOC: [facility] U#:[id number] AGE/SX: 31/F ROOM: RE06/04/[address]: Dr. Nena Watters MD : 1990 BED: DIS: 06/04/2021 SPEC #: [id number] RECD: 06/04/21 15:54 STATUS: FRANKLIN YAP #: [id number] BREONNA: 06/04/21 00:[address]: Nena Watters DEPT: CYTOLOGY RECD BY: Monica Farias ENTERED: 06/05/21 09:05 SP TYPE: CYSPIN FL OTHR DR: Dr. Deanna Peterson, DO Tissues: Urine Procedures: Pap Stain (control) Special Stain Group II Cytospin Fluid HEADER OPERATION: Not noted PRE-OP DIAGNOSIS: Gross hematuria TISSUE SUBMITTED: Urine for cytology DIAGNOSIS CYTOLOGY Urine for cytology (cytospin): Negative for malignant cells. See comment. SJ:ashlie 06/05/2021 COMMENT The specimen predominantly consists of squamous epithelial cells. CYTOLOGY STUDY Slides are reviewed. CYTOLOGY GROSS Received is 40 ml of hazy yellow fluid labeled with the patient's name and and designated per the requisition as urine. Submitted for cytology preparation. / ashlie 06/05/2021 TC:4 CPT: 59218
[2021-06-04 12:13] LABS: Hematocrit 41.7 % (37-47); Hemoglobin 13.5 g/dL (12.0-15.0); Mean Corp Hgb Conc 32.4 g/dL (32-36); Mean Corpuscular Volume 89.5 fL (81-99); Mean Platelet Vol. 10.2 fl (6.2-12.0); Platelet Count 273 K/mm3 (150-450); RBC Distribution Width CV 12.9 % (11.6-14.6); Red Blood Count 4.66 M/mm3 (4.2-5.4); White Blood Count 7.3 K/mm3 (4.4-11.0)
[2021-06-04 12:36] LABS: Anion Gap 5 (5-15); BUN 14 mg/dL (7-18); BUN/Creat Ratio 16.4 RATIO (10-20); Calcium,Total 9.6 mg/dL (8.5-10.1); Chloride 105 mmol/L (98-107); Creatinine, Serum 0.85 mg/dL (0.55-1.02); EST Glomerular Filtration Rate 83 mL/min (>60); Est Glom Filt Rate - Afr Amer 101 mL/min (>60); Glucose 92 mg/dL (74-106); Potassium 3.9 mmol/L (3.5-5.1); Sodium Level 137 mmol/L (136-145)
[2021-06-04 15:54] LABS: Cytology, Body Fluid / CSF SEE PATHOLOGY REPORT
== END 2021-06-04 23:59 | disposition home or self-care (01) ==
PROVIDERS: PCP Internal Medicine; Referring Provider Urology; Visit Provider Urology
DX: R31.0 Gross hematuria (principal)
CPT/HCPCS: 36415; 80048; 85027; 88108; 88313

== ENCOUNTER 2021-06-10 13:03 | Outpatient (CLI) | payer OTHER, SELFPAY ==
--- NOTE | 2021-06-10 13:07 | CT_ITS ---
STUDY: CT ABDOMEN AND PELVIS WITH AND WITHOUT CONTRAST REASON FOR EXAM: Female, 31 years old. GROSS HEMATURIA RADIATION DOSAGE (If Supplied By Facility): CTDIvol = ( 24.24 ) mGy, DLP = ( 3741.35 ) mGycm TECHNIQUE: Transaxial images were obtained from the dome of the diaphragm to the symphysis pubis without oral contrast. IV 100mL Isovue-300 was administered. Sagittal and coronal images were reconstructed. Individualized dose optimization techniques were used for this CT. COMPARISON: Comparison is made with prior study dated 04/01/2019. FINDINGS: The visualized lung bases are unremarkable. The visualized portions of the heart are within normal limits. There is decreased attenuation of the liver consistent with steatosis. The patient is status post cholecystectomy. Normal spleen. Normal pancreas. Normal bilateral adrenal glands. 2 mm calculus in the anterior lower pole of the right kidney. There is a 3 mm calculus in the mid posterior calyx of the left kidney. A punctate calculus is seen in the lower pole calyx of the left kidney. Normal visualized stomach. Normal small intestine. Normal colon. There is non-visualization of the appendix. Normal abdominal aorta. Normal inferior vena cava. Normal retroperitoneum. Normal urinary bladder. There is a 2.3 cm septated cyst in the right ovary. Findings suggestive of a 2 cm fibroid in the body of the uterus. Normal abdominal wall. Normal osseous structures. CT/CT Abd/Pelvis W/WO Contrast IMPRESSION: Diffuse fatty infiltration of the liver. The patient is status post cholecystectomy. Bilateral nonobstructive intrarenal calculi. Septated right ovarian cyst. Electronically Signed: Giles Thao MD at 13:54 EST ,
[2021-06-15 20:24] LABS: HPV Reflexed? NOT INDICATED
== END 2021-06-10 23:59 | disposition home or self-care (01) ==
PROVIDERS: PCP Internal Medicine; Referring Provider Urology; Visit Provider Urology
DX: R31.0 Gross hematuria (principal); Z12.4 Encounter for screening for malignant neoplasm of cervix
CPT/HCPCS: 74178; 88175; Q9967; G0145

== ENCOUNTER 2021-07-08 12:46 | Outpatient (CLI) | payer OTHER, SELFPAY ==
[2021-07-10 19:07] LABS: QNTFERON TB Mitogen Value > 10.00 IU/mL (.); QNTFERON TB Nil Value 0.01 IU/mL (.); QNTFERON TB1+ Ag Value 0.05 IU/mL (.); QNTFERON TB2+ Ag Value 0.03 IU/mL (.)
[2021-07-10 20:05] LABS: QNTIFERON TB Positive Criteria Negative (Negative)
== END 2021-07-08 23:59 | disposition home or self-care (01) ==
LOC: MTLAB 12:48
PROVIDERS: PCP Internal Medicine; Referring Provider Dermatology; Visit Provider Dermatology
DX: L40.0 Psoriasis vulgaris (principal); Z79.899 Other long term (current) drug therapy
CPT/HCPCS: 36415; 86480

== ENCOUNTER 2021-07-10 16:44 | Outpatient (CLI) | payer OTHER, SELFPAY ==
--- NOTE | 2021-07-10 16:47 | US_ITS ---
STUDY: RENAL ULTRASOUND - COMPLETE REASON FOR EXAM: Female, 31 years old. KIDNEY STONE TECHNIQUE: Ultrasound evaluation of the kidneys was performed with real-time and static loja-scale imaging. COMPARISON: None. FINDINGS: RIGHT KIDNEY: Normal location of the right kidney, which is normal in size. The right kidney measures 10.2 x 4.4 x 3.8 cm. There is a normal cortex of the right kidney. The renal cortex measures 1.6 cm. There is no right renal mass or cyst. There is a 7 mm lower pole stone. There is no right hydronephrosis. DISTAL RIGHT URETER: There is non-visualization of the distal right ureter. There is no demonstrated right ureterovesical junction calculus. There is a visualized right ureteral jet. LEFT KIDNEY: Normal location of the left kidney, which is normal in size. The left kidney measures 10.5 x 4.3 x 4.8 cm. There is a normal cortex of the left kidney. The renal cortex measures 1.6 cm. There is no left renal mass or cyst. There are up to 9 mm left renal calculi. There is no left hydronephrosis. DISTAL LEFT URETER: There is non-visualization of the distal left ureter. There is no demonstrated left ureterovesical junction calculus. There is a visualized left ureteral jet. BLADDER: The distended urinary bladder has a volume of 145 ml. The post void urinary bladder has a volume of 3.5 ml. There is a normal wall thickness of the distended urinary bladder. There is no demonstrated mass within the urinary bladder. There are no demonstrated bladder calculi. US/Kidney and Bladder IMPRESSION: Nonobstructive calculi of the kidneys. Trace postvoid residual in the urinary bladder. Electronically Signed: Rayo Ya DO at 18:11 EDT ,
== END 2021-07-10 23:59 | disposition home or self-care (01) ==
LOC: US 16:45
PROVIDERS: PCP Internal Medicine; Referring Provider Urology; Visit Provider Urology
DX: N20.0 Calculus of kidney (principal)
CPT/HCPCS: 76770

== ENCOUNTER 2021-09-24 12:10 | Day surgery (SDC) | payer OTHER, SELFPAY ==
[2021-09-24] VITALS (7 sets, daily range): BP systolic 102–124; BP diastolic 68–87; PULSE 62–100; RESP 16–18; TEMP 36.1–36.6; O2SAT 95–100; BMI 37.3
--- NOTE | 2021-09-24 | CALC_PTH ---
PATIENT: KEMI WILLIS LOC: [facility] U#:[id number] AGE/SX: 31/F ROOM: RE09/24/[address]: Dr. Nena Watters MD : 1990 BED: DIS: 09/24/2021 SPEC #: [id number] RECD: 09/25/21 07:19 STATUS: FRANKLIN YAP #: [id number] BREONNA: 09/24/21 00:[address]: Nena Watters DEPT: SURGICAL PATHOLOGY RECD BY: Edwin Brody ENTERED: 09/25/21 08:16 SP TYPE: Calculi OTHR DR: Dr. Deanna Peterson DO Tissues: CALCULI Procedures: Surgery Specimen Level I HEADER OPERATION: Cysto, ureteroscopy, laser lithotripsy, basket extraction, stent PRE-OP DIAGNOSIS: Bilateral renal stones, gross hematuria TISSUE SUBMITTED: Left renal stones GROSS DIAGNOSIS A fragment of stone, clinically left renal stone. SJ:ashlie 09/28/2021 COMMENT If chemical analysis is requested on this specimen, please notify the laboratory. GROSS DESCRIPTION Received without fixative labeled with the patient's name and designated left renal stone. The specimen consists of a fragment of brownish-black stone measuring 0.4 x 0.2 x 0.2 cm. The entire specimen is saved if stone analysis is requested. / LISSY:ashlie 09/25/2021 CPT: 88996
--- NOTE | 2021-09-24 07:57 | PCM.DC ---
Discharge Instructions Diet Discharge Diet: No restrictions Activity Discharge Activity: Return to Normal Activity May resume sexual activity in: No Restrictions Dressing / Incision Call your doctor if you observe: Fever of 101 or Higher, Inability to urinate and Inability to have a bowel movement Follow Up Care Please Follow Up With: Nena Watters MD When: Call office for appointment Test Results: Test results from this visit will be discussed in further detail at your follow-up appointment, if applicable. Discharge Plan Admission Attending Provider: Nena Watters Primary Care Provider: Deanna Peterson Discharge Orders/Prescriptions Prescriptions: New ondansetron HCl [ondansetron HCl] 8 MG tablet 8 mg PO Q8H PRN PRN (Reason: Nausea) 7 Days Qty: 20 RF: 0 oxycodone-acetaminophen [oxycodone-acetaminophen] 1 TABLET tablet 2 tab PO Q8H PRN PRN (Reason: Pain) 7 Days Qty: 20 RF: 0 phenazopyridine [Pyridium] 200 MG tablet 200 mg PO TID PRN PRN (Reason: Bladder Spasms) 7 Days Qty: 30 RF: 0 sulfamethoxazole-trimethoprim [sulfamethoxazole-trimethoprim] 1 TABLET tablet 1 tab PO BID 3 Days Qty: 6 RF: 0 Continued levothyroxine 50 MCG tablet 75 mcg PO DAILY RF: 0 sertraline 100 mg tablet 150 mg PO DAILY RF: 0 metformin 500 mg tablet 500 mg PO BID RF: 0 meloxicam 15 mg tablet 15 mg PO QHS RF: 0 dextroamphetamine-amphetamine 30 mg tablet 30 mg PO DAILY RF: 0 Referrals / Follow Up: Deanna Peterson DO [Primary Care Provider] - Disposition Disposition (needs filled in before D/C Order can be placed): Home, Self Care
--- NOTE | 2021-09-24 07:58 | PCM.OPRPT ---
Problems Associated Problem List Diagnoses (1) Bilateral renal stones: (2) Gross hematuria: Report of Operation Date of Procedure: 09/24/21 Pre-Operative Diagnosis: Bilateral renal stones, gross hematuria Post-Operative Diagnosis: Same Surgery/Procedure Performed:: Cystoscopy, left ureteroscopy, holmium laser lithotripsy, stone basket extraction, bilateral ureteral stent insertion Surgeon: Nena Watters Type of Anesthesia: General Specimen's removed: Left renal stones Description of Procedure: The patient is a 31-year-old female who has been having issues with bilateral renal calculi and gross hematuria. She now presents for definitive surgical intervention. Informed consent was obtained. The patient was taken the operating room and placed on table. Anesthesia monitored the head neck, airway, IV access and vital. Anesthesia was appropriately administered she was placed into dorsolithotomy position was prepped and draped in usual fashion. The cystoscope was inserted through the urethra under direct visualization into the urinary bladder. The bladder mucosa was entirety and found to be within normal limits. Bilateral ureteral orifices were located in the area of the trigone. The right ureteral orifice was intubated with a 0.035 Glidewire. A second Glidewire was placed alongside. The flexible ureteroscope was then attempted to be advanced over one of the Glidewire's and the ureteral orifice would not accommodate this due to its small size. A 6 Libyan 22 cm JJ stent was then placed over the one of the Glidewires with good curling achieved in the renal pelvis as well as the urinary bladder. At this time, the process was repeated on the patient's left side. The ureteral orifice on the left side, although narrow, was able to accommodate the flexible ureteroscope. The ureteroscope was then advanced over the Glidewire into the renal pelvis. The ureter was tight mostly distally. Once in the renal pelvis, each of the calyces were directly visualized. There were complex calyces specifically in the upper pole. There were 2 calyces with stones visualized. Stone basket was used to grasp the stone from the lowest calyx and it was removed without difficulty. The ureteroscope was then once again inserted. The remaining stone was intermediate embedded into the papilla. A stone basket was used to grasp the stone which was significantly larger than anticipated. It was too large to transition through the ureter. The laser fiber was then used to make the stone smaller. The edges of the stone that were lasered to turn to dust. The stone was then able to be grasped with the basket and removed without complication. Both stone fragments were sent for evaluation. Using the remaining Glidewire, a 6 Libyan 22 cm JJ stent was placed with good curling in the renal pelvis as well as the urinary bladder. The patient's bladder was then emptied and the case was terminated. She was awakened and taken to the recovery room in good condition. There were no complications procedure. Grafts/Implants Used: 6 x 22 cm JJ stent x2 Complications None Admit VTE Documentation VTE Present on Admission: Yes VTE Mechan Device Prophylaxis: SCD's VTE Pharm Prophylaxis ordered?: No Reason prophylaxis not ordered:: Treatment Not Indicated
[2021-09-24] MEDS: Lactated Ringers 1,000 ML 15 ML IV ×2 (13:20→15:33)
[2021-09-24] MEDS: Ciprofloxacin 400 MG/200 ML BAG 200 MG IV (14:04)
[2021-09-24] MEDS: Phenazopyridine 95 MG Tablet 190 MG PO (17:17)
[2021-09-24] MEDS: Ketorolac 30 MG/ML Syringe IV (17:18)
== END 2021-09-24 17:51 | disposition home or self-care (01) ==
LOC: SDC 12:11 → AC 12:13
PROVIDERS: PCP Internal Medicine; Visit Provider Urology
PROC: (CPT 52332; principal; 2021-09-24 13:35)
DX: N20.0 Calculus of kidney (principal); K58.9 Irritable bowel syndrome, unspecified; E03.9 Hypothyroidism, unspecified; E28.2 Polycystic ovarian syndrome; Z79.899 Other long term (current) drug therapy; Z79.84 Long term (current) use of oral hypoglycemic drugs; F32.A Depression, unspecified; F41.9 Anxiety disorder, unspecified; R31.0 Gross hematuria
CPT/HCPCS: 52356; 00873; 76000; 88300; J7120; C2625; J0744; J2405

== ENCOUNTER 2021-09-29 12:42 | Emergency (ER) | payer OTHER, SELFPAY ==
[2021-09-29 12:42] VITALS: BP 154/112; PULSE 115; RESP 22; TEMP 36.8; O2SAT 96; BMI 37.0
--- NOTE | 2021-09-29 13:16 | CT_ITS ---
STUDY: CT ABDOMEN AND PELVIS WITHOUT CONTRAST REASON FOR EXAM: Female, 31 years old. BILATERAL FLANK PAIN WITH LITHOTRIPSY LAST TUESDAY AND STENTS REMOVED TODAY. PRIOR APPY AND TWO C-SECTIONS RADIATION DOSAGE (If Supplied By Facility): CTDIvol = ( 14.68 ) mGy, DLP = ( 735.97 ) mGycm TECHNIQUE: Transaxial images were obtained from the dome of the diaphragm to the symphysis pubis without oral contrast, and without intravenous contrast. Sagittal and coronal images were reconstructed. Individualized dose optimization techniques were used for this CT. COMPARISON: Comparison is made with prior study dated 06/10/2021. FINDINGS: The visualized lung bases are unremarkable. The visualized portions of the heart are within normal limits. There is decreased attenuation of the liver consistent with steatosis. The patient is status post cholecystectomy. Normal spleen. Normal pancreas. Normal bilateral adrenal glands. Tiny calculus is seen in the lower pole calyx of the right kidney. Mild degree of right hydronephrosis and right hydroureter. Tiny calculus in the posterior midpole calyx of the left kidney. Mild degree of left hydronephrosis and left hydroureter without evidence of obstructive uropathy. Normal visualized stomach. Normal small intestine. Normal colon. There are surgical clips in the region of the appendix consistent with a prior appendectomy. Normal abdominal aorta. Normal inferior vena cava. There is borderline retroperitoneal lymphadenopathy with enlarged nodes no greater than 10mm in the short axis diameter. Normal urinary bladder. Normal abdominal wall. Normal osseous structures. CT/Abdomen/Pelvis without Cont IMPRESSION: Diffuse fenestration of the liver. Status post cholecystectomy. Tiny bilateral nonobstructive intrarenal calculi. Bilateral mild degree of hydronephrosis and hydroureter without evidence of obstructive uropathy. Electronically Signed: Giles Thao MD at 13:58 EDT ,
[2021-09-29] MEDS: Ketorolac 15 MG/ML Vial IV (13:21)
[2021-09-29] MEDS: Ondansetron 4 MG/2 ML Vial IV (13:21)
[2021-09-29] MEDS: 0.9% Normal Saline 1,000 ML 150 ML IV (13:21)
[2021-09-29] MEDS: Morphine 4 MG/ML Syringe IV (13:21)
[2021-09-29 13:40] LABS: Absolute Lymphocyte Count 1.91 X10^3/uL (0.83-4.51); Absolute Neutrophil Count 10.1 X10^3/uL (2.0-7.7); Basophil# 0.07 X10^3/uL; Basophil% 0.5 % (0-1); Eosinophil# 0.18 X10^3/uL; Eosinophils% 1.4 % (0-5); Hematocrit 40.7 % (37-47); Hemoglobin 13.3 g/dL (12.0-15.0); Lymphocyte # 1.91 X10^3/ul (0.83-4.51); Lymphocyte % 14.7 % (19-41); Mean Corp Hgb Conc 32.7 g/dL (32-36); Mean Corpuscular Hgb 29.2 pg (27.0-32.0); Mean Corpuscular Volume 89.3 fL (81-99); Mean Platelet Vol. 9.9 fl (6.2-12.0); Monocyte# 0.71 X10^3/uL; Monocyte% 5.5 % (0-10); NRBC Flagged by Analyzer 0 % (0-5); Neutrophil # 10.06 X10^3/uL (2.7-7.7); Neutrophil % 77.5 % (47-70); Platelet Count 338 K/mm3 (150-450); RBC Distribution Width CV 13.2 % (11.6-14.6); RBC Distribution Width SD 43.2 fl (35.1-43.9); Red Blood Count 4.56 M/mm3 (4.2-5.4)
[2021-09-29 13:52] LABS: Bacteria 0 SEEN /hpf (None Seen); Mucous, Urine 0 SEEN /hpf (<or=2+); Squamous Epithelial Cells - UA 0 SEEN /hpf (5-10)
[2021-09-29 13:55] LABS: Anion Gap 8 (5-15); BUN 15 mg/dL (7-18); BUN/Creat Ratio 16.5 RATIO (10-20); Calcium,Total 9.3 mg/dL (8.5-10.1); Chloride 103 mmol/L (98-107); Creatinine, Serum 0.91 mg/dL (0.55-1.02); EST Glomerular Filtration Rate 77 mL/min (>60); Est Glom Filt Rate - Afr Amer 93 mL/min (>60); Estimated Creatinine Clearance 64.93 ml/min; Glucose 109 mg/dL (74-106); Potassium 3.6 mmol/L (3.5-5.1); Sodium Level 136 mmol/L (136-145)
[2021-09-29 13:55] LABS: Color, Urine SEE COMMENT BELOW (Yellow); Glucose, Dipstick Normal (Normal); Ketone-Dipstick 5 mg/dl (Negative); Leukocyte Esterase-Dipstick 500 /ul (Negative); Nitrite-Dipstick Positive (Negative); Occult Blood-Urine 250 /ul (Negative); Protein-Dipstick 500 mg/dl (Negative); Urine Bilirubin Dipstick 3 mg/dL (Negative); Urine Clarity Cloudy (Clear); Urine Urobilinogen 4 mg/dl (Normal); Urine pH 6.5 (5.0 - 8.0)
[2021-09-29 14:01] LABS: Red Blood Cells-Urine > 100 SEEN /hpf (0-5); White Blood Cells >100 SEEN /hpf (0-5)
[2021-09-29 14:21] VITALS: BP 119/81; PULSE 99; RESP 18; O2SAT 99
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
== END 2021-09-29 14:58 | disposition home or self-care (01) ==
PROVIDERS: Emergency Provider Emergency Medicine; PCP Internal Medicine; Visit Provider Emergency Medicine
DX: R10.9 Unspecified abdominal pain (principal); G47.30 Sleep apnea, unspecified
CPT/HCPCS: 74176; 80048; 81001; 85025; 96374; 96375; 99283; J7030; A4216; J2405

== ENCOUNTER 2021-10-19 09:45 | Emergency (ER) | payer OTHER, SELFPAY ==
[2021-10-19 09:45] VITALS: BP 125/86; PULSE 87; RESP 16; TEMP 36.6; O2SAT 98; BMI 39.0
--- NOTE | 2021-10-19 10:07 | CT_ITS ---
STUDY: CT ABDOMEN AND PELVIS WITH CONTRAST REASON FOR EXAM: Female, 31 years old. epigastric pain RADIATION DOSAGE (If Supplied By Facility): CTDIvol = ( 12.68 ) mGy, DLP = ( 793.04 ) mGycm TECHNIQUE: Transaxial images were obtained from the dome of the diaphragm to the symphysis pubis without oral contrast. IV 100mL Isovue-[id number] was administered. Sagittal and coronal images were reconstructed. Individualized dose optimization techniques were used for this CT. COMPARISON: 09/29/2021 FINDINGS: The visualized lung bases are unremarkable. The visualized portions of the heart are within normal limits. Normal liver. There is non-visualization of the gallbladder, which may be secondary to either contraction or a prior cholecystectomy. Normal spleen. Normal pancreas. Normal bilateral adrenal glands. Normal right kidney. Normal left kidney. Normal visualized stomach. Multiple small lymph nodes in the small bowel mesentery consistent with gastroenteritis or mesenteric adenitis. Normal colon. There are surgical clips in the region of the appendix consistent with a prior appendectomy. Normal abdominal aorta. Normal inferior vena cava. Normal retroperitoneum. Normal urinary bladder. There is a small umbilical hernia containing fat. Normal osseous structures. CT/Abdomen/Pelvis W IV Cont ONLY IMPRESSION: Suspect gastroenteritis or mesenteric adenitis. Electronically Signed: Gurjit Calderon MD at 11:20 EDT ,
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
[2021-10-19] MEDS: 0.9% Normal Saline 1,000 ML 1000 ML IV (10:18)
[2021-10-19] MEDS: Morphine 4 MG/ML Syringe IV (10:18)
[2021-10-19] MEDS: Ondansetron 4 MG/2 ML Vial IV (10:18)
[2021-10-19 10:21] LABS: Absolute Lymphocyte Count 1.74 X10^3/uL (0.83-4.51); Basophil# 0.04 X10^3/uL; Basophil% 0.5 % (0-1); Eosinophil# 0.12 X10^3/uL; Eosinophils% 1.6 % (0-5); Hematocrit 41.5 % (37-47); Hemoglobin 13.2 g/dL (12.0-15.0); Lymphocyte # 1.74 X10^3/ul (0.83-4.51); Lymphocyte % 23.1 % (19-41); Mean Corp Hgb Conc 31.8 g/dL (32-36); Mean Corpuscular Hgb 28.3 pg (27.0-32.0); Mean Corpuscular Volume 89.1 fL (81-99); Mean Platelet Vol. 9.4 fl (6.2-12.0); Monocyte# 0.58 X10^3/uL; Monocyte% 7.7 % (0-10); NRBC Flagged by Analyzer 0 % (0-5); Neutrophil % 66.6 % (47-70); Platelet Count 291 K/mm3 (150-450); RBC Distribution Width CV 13.2 % (11.6-14.6); RBC Distribution Width SD 42.9 fl (35.1-43.9); Red Blood Count 4.66 M/mm3 (4.2-5.4); White Blood Count 7.5 K/mm3 (4.4-11.0)
[2021-10-19 10:36] LABS: Bacteria 0 SEEN /hpf (None Seen); Mucous, Urine 0 SEEN /hpf (<or=2+); Red Blood Cells-Urine 0 SEEN /hpf (0-5); White Blood Cells 0 SEEN /hpf (0-5)
[2021-10-19 10:38] LABS: Color, Urine Yellow (Yellow); Glucose, Dipstick Normal (Normal); Ketone-Dipstick Negative (Negative); Leukocyte Esterase-Dipstick Negative /ul (Negative); Nitrite-Dipstick Negative (Negative); Occult Blood-Urine 10 /ul (Negative); Protein-Dipstick Negative (Negative); Urine Bilirubin Dipstick Negative (Negative); Urine Clarity Clear (Clear); Urine Urobilinogen Normal (Normal)
[2021-10-19 10:38] LABS: AST(SGOT) 18 U/L (15-37); Alanine Aminotransfer ALT/SGPT 32 U/L (13-56); Albumin, Serum 3.6 g/dL (3.2-5.0); Alkaline Phosphatase 80 U/L (45-117); Anion Gap 6 (5-15); BUN 8 mg/dL (7-18); BUN/Creat Ratio 8.8 RATIO (10-20); Bilirubin, Direct 0.08 mg/dL (0.00-0.30); Calcium,Total 9.2 mg/dL (8.5-10.1); Chloride 103 mmol/L (98-107); EST Glomerular Filtration Rate 77 mL/min (>60); Est Glom Filt Rate - Afr Amer 94 mL/min (>60); Estimated Creatinine Clearance 65.65 ml/min; Globulin 3.9 g/dL (2.2-4.2); Glucose 108 mg/dL (74-106); Lipase 180 U/L (73-393); Potassium 4.2 mmol/L (3.5-5.1); Protein, Total 7.5 g/dL (6.4-8.2); Sodium Level 138 mmol/L (136-145)
[2021-10-19 10:45] LABS: Squamous Epithelial Cells - UA 0-5 SEEN /hpf (5-10)
[2021-10-19 11:45] VITALS: BP 138/78; PULSE 80; RESP 16; O2SAT 99
== END 2021-10-19 11:46 | disposition home or self-care (01) ==
PROVIDERS: Emergency Provider Student in an Organized Health Care Education/Training Program; PCP Internal Medicine; Visit Provider Student in an Organized Health Care Education/Training Program
DX: K52.9 Noninfective gastroenteritis and colitis, unspecified (principal); I88.0 Nonspecific mesenteric lymphadenitis; G47.30 Sleep apnea, unspecified
CPT/HCPCS: 74177; 80048; 80076; 81001; 83690; 85025; 96361; 96374; 96375; 99283; J7030; Q9967; A4216; J2405

== ENCOUNTER → 2021-12-30 | Outpatient (CLI) | payer OTHER, SELFPAY ==
[2021-12-30 12:25] LABS: Mucous, Urine 0 SEEN /hpf (<or=2+)
[2021-12-30 12:36] LABS: Color, Urine Yellow (Yellow); Glucose, Dipstick Normal (Normal); Ketone-Dipstick Negative (Negative); Leukocyte Esterase-Dipstick 500 /ul (Negative); Nitrite-Dipstick Negative (Negative); Occult Blood-Urine 150 /ul (Negative); Protein-Dipstick 15 mg/dl (Negative); Specific Gravity, Urine 1.005 (1.002-1.030); Urine Bilirubin Dipstick Negative (Negative); Urine Clarity Sl. Cloudy (Clear); Urine Urobilinogen Normal (Normal)
[2021-12-30 12:48] LABS: Bacteria 1+ /hpf (None Seen); Red Blood Cells-Urine 10-25 SEEN /hpf (0-5); Squamous Epithelial Cells - UA 0-5 SEEN /hpf (5-10); White Blood Cells 25-50 SEEN /hpf (0-5)
== END | disposition home or self-care (01) ==
LOC: LABSPEC 12:13
PROVIDERS: PCP Internal Medicine; Referring Provider Physician Assistant; Visit Provider Physician Assistant
DX: R30.9 Painful micturition, unspecified (principal)
CPT/HCPCS: 81001; 87077; 87086; 87088; 87186

== ENCOUNTER → 2022-01-20 | Outpatient (CLI) | payer OTHER, SELFPAY ==
[2022-01-20 16:35] LABS: NATERA MAILED SPECIMEN
== END | disposition home or self-care (01) ==
LOC: PAVLAB 15:21
PROVIDERS: PCP Internal Medicine; Referring Provider Nurse Practitioner Women's Health; Visit Provider Nurse Practitioner Women's Health
DX: Z00.00 Encounter for general adult medical examination without abnormal findings (principal); Z80.3 Family history of malignant neoplasm of breast
CPT/HCPCS: 36415

== ENCOUNTER → 2022-02-09 | Outpatient (CLI) | payer OTHER, SELFPAY ==
--- NOTE | 2022-02-09 16:15 | BI_ITS ---
MAMMOGRAPHY - BILATERAL SCREENING REASON FOR EXAM: Female, 31 years old. Routine annual screening examination. PERTINENT HISTORY: Mother with breast cancer. Grandmother with breast cancer. Prior bilateral breast reduction surgery. TECHNIQUE: Digital bilateral breast bong (3D mammographic acquisition) in the CC and MLO projections. 2-D mediolateral oblique (MLO) and craniocaudad (CC) views of both breasts were obtained. CAD: Full Field Digital Mammography with Computer Added Detection was performed. COMPARISON: Comparison is made with prior examination dated 01/22/2021. FINDINGS: Breast Composition: There are scattered areas of fibroglandular density. There are no dominant masses or suspicious calcifications. A tissue clip marker is seen in the deep central portion of the left breast. A tissue clip marker is also seen in the central medial aspect of the left breast as well as in the upper lateral aspect of the right breast. Stable appearance of the bilateral fat-containing axillary lymph nodes. No other significant abnormalities are identified. There has been no significant change since the prior study. BI/SCRN MAMM (CAD)W/BONG BILAT IMPRESSION: Stable bilateral screening mammogram. Yearly follow-up mammogram recommended. (A) ASSESSMENT CATEGORY: BIRADS Category 2: Benign. A letter regarding these results will be sent to the patient by the facility within 30 days. Approximately 10% of breast cancers are not detected by mammography. A normal mammogram should not delay biopsy of a clinically suspicious abnormality. [id number] Electronically Signed: Giles Thao MD at 8:24 EDT ,
== END | disposition home or self-care (01) ==
LOC: OPBI 16:14
PROVIDERS: PCP Internal Medicine; Visit Provider Nurse Practitioner Women's Health
DX: Z12.31 Encounter for screening mammogram for malignant neoplasm of breast (principal)
CPT/HCPCS: 77063; 77067

== ENCOUNTER 2022-05-22 20:38 | Emergency (ER) | payer OTHER, SELFPAY ==
[2022-05-22 20:39] VITALS: BP 114/93; PULSE 161; RESP 14; TEMP 36.1; O2SAT 97; BMI 38.3
--- NOTE | 2022-05-22 20:56 | CT_ITS ---
EXAM: CT ABDOMEN AND PELVIS WITHOUT INTRAVENOUS CONTRAST CLINICAL INDICATION: Kidney Stone -- Right flank, status post tubal ligation TECHNIQUE: Helically acquired images were obtained of the abdomen and pelvis without intravenous contrast. This CT exam was performed using one or more of the following dose reduction techniques: automated exposure control, adjustment of the mA and/or kV according to patient size, and/or use of iterative reconstruction technique. This report was created using [employer] report generation technology. RADIATION DOSE: CTDIvol = 15.59 mGy, DLP = 774.91 mGy-cm. COMPARISON: 422. FINDINGS: LOWER THORAX: Unremarkable. Lung bases are clear. No cardiomegaly. No significant pericardial effusion. ABDOMEN: LIVER: Unremarkable. Homogeneous. GALLBLADDER AND BILE DUCTS: Cholecystectomy. No intra- or extrahepatic biliary ductal dilation. PANCREAS: Unremarkable. No focal cystic mass. SPLEEN: Unremarkable. Normal size without focal cystic or solid mass. ADRENALS: Unremarkable. No nodules. KIDNEYS AND URETERS: At least two tiny nonobstructing renal calculi on the right and one on the left. Normal renal size and position. STOMACH AND BOWEL: Unremarkable. No stomach or bowel distention. No focal inflammatory change. PELVIS: APPENDIX: Status post appendectomy. BLADDER: Unremarkable. REPRODUCTIVE: Cyst measuring 3.4 cm left ovary similar to the prior exam. ABDOMEN and PELVIS: INTRAPERITONEAL SPACE: Unremarkable. No ascites or other fluid collection. No free air. BONES/JOINTS: Unremarkable. No suspicious lytic or blastic abnormality. SOFT TISSUES: Small fat-containing periumbilical hernia unchanged since previous exam. VASCULATURE: Unremarkable. Abdominal aorta is non-dilated. LYMPH NODES: Unremarkable. No enlarged lymph nodes. CT/Abdomen/Pelvis without Cont IMPRESSION: 1. No acute abdominal pelvic abnormality. 2. Cholecystectomy. 3. At least two tiny nonobstructing renal calculi on the right and one on the left. 4. Cyst measuring 3.4 cm left ovary similar to the prior exam. 5. Small fat-containing periumbilical hernia unchanged since previous exam. RECOMMENDATIONS: Cyst measuring 3.4 cm left ovary similar to the prior exam. No follow-up is necessary. Electronically Signed: Michael Bishop MD at 21:52 EST ,
[2022-05-22] MEDS: Ondansetron 4 MG/2 ML Vial IV (21:18)
[2022-05-22] MEDS: Morphine 4 MG/ML Syringe IV (21:18)
[2022-05-22] MEDS: Ketorolac 15 MG/ML Vial IV (21:18)
[2022-05-22] MEDS: 0.9% Normal Saline 1,000 ML 250 ML IV (21:18)
[2022-05-22 21:19] LABS: Mucous, Urine 0 SEEN /hpf (<or=2+)
[2022-05-22 21:21] LABS: Absolute Lymphocyte Count 0.88 X10^3/uL (0.83-4.51); Absolute Neutrophil Count 11.9 X10^3/uL (2.0-7.7); Basophil# 0.05 X10^3/uL; Basophil% 0.4 % (0-1); Eosinophil# 0.02 X10^3/uL; Eosinophils% 0.1 % (0-5); Hematocrit 35.9 % (37-47); Hemoglobin 11.5 g/dL (12.0-15.0); Lymphocyte # 0.88 X10^3/ul (0.83-4.51); Lymphocyte % 6.4 % (19-41); Mean Corpuscular Hgb 28.6 pg (27.0-32.0); Mean Corpuscular Volume 89.3 fL (81-99); Mean Platelet Vol. 9.6 fl (6.2-12.0); Monocyte# 0.86 X10^3/uL; Monocyte% 6.3 % (0-10); NRBC Flagged by Analyzer 0 % (0-5); Neutrophil # 11.86 X10^3/uL (2.7-7.7); Neutrophil % 86.3 % (47-70); Platelet Count 225 K/mm3 (150-450); RBC Distribution Width CV 13.3 % (11.6-14.6); RBC Distribution Width SD 43.9 fl (35.1-43.9); Red Blood Count 4.02 M/mm3 (4.2-5.4); White Blood Count 13.7 K/mm3 (4.4-11.0)
[2022-05-22 21:27] LABS: Color, Urine Yellow (Yellow); Glucose, Dipstick Normal (Normal); Ketone-Dipstick Negative (Negative); Leukocyte Esterase-Dipstick Negative /ul (Negative); Nitrite-Dipstick Negative (Negative); Occult Blood-Urine 25 /ul (Negative); Protein-Dipstick Negative (Negative); Urine Bilirubin Dipstick Negative (Negative); Urine Clarity Clear (Clear); Urine Urobilinogen Normal (Normal)
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
[2022-05-22 21:34] LABS: Anion Gap 8 (5-15); BUN 12 mg/dL (7-18); BUN/Creat Ratio 15.8 RATIO (10-20); Bacteria 1+ /hpf (None Seen); Calcium,Total 8.7 mg/dL (8.5-10.1); Chloride 106 mmol/L (98-107); Creatinine, Serum 0.76 mg/dL (0.55-1.02); EST Glomerular Filtration Rate 95 mL/min (>60); Est Glom Filt Rate - Afr Amer 115 mL/min (>60); Estimated Creatinine Clearance 77.75 ml/min; Glucose 106 mg/dL (74-106); Potassium 3.9 mmol/L (3.5-5.1); Red Blood Cells-Urine 0-5 SEEN /hpf (0-5); Sodium Level 138 mmol/L (136-145); Squamous Epithelial Cells - UA 0-5 SEEN /hpf (5-10); White Blood Cells 0-5 SEEN /hpf (0-5)
[2022-05-22 22:39] VITALS: PULSE 74; RESP 15; O2SAT 98
[2022-05-22] MEDS: Ceftriaxone 1 GM/50 ML BAG IV (22:43)
== END 2022-05-22 22:52 | disposition home or self-care (01) ==
PROVIDERS: Emergency Provider Emergency Medicine; PCP Internal Medicine; Visit Provider Emergency Medicine
DX: N39.0 Urinary tract infection, site not specified (principal); N20.0 Calculus of kidney; R10.9 Unspecified abdominal pain; G47.30 Sleep apnea, unspecified
CPT/HCPCS: 74176; 80048; 81001; 85025; 87086; 87088; 96374; 96375; 99283; J7030; A4216; J2405

== ENCOUNTER → 2023-02-14 | Outpatient (CLI) | payer OTHER, SELFPAY ==
--- NOTE | 2023-02-14 12:26 | BI_ITS ---
MAMMOGRAPHY - BILATERAL SCREENING REASON FOR EXAM: Female, 32 years old. Routine annual screening examination. PERTINENT HISTORY: Mother with breast cancer. Grandmother with breast cancer. History of bilateral breast reduction surgery. TECHNIQUE: Digital bilateral breast bong (3D mammographic acquisition) in the CC and MLO projections. 2-D mediolateral oblique (MLO) and craniocaudad (CC) views of both breasts were obtained. CAD: Full Field Digital Mammography with Computer Added Detection was performed. COMPARISON: Comparison is made with prior study February 09, 2022 and January 22, 2021. FINDINGS: Breast Composition: There are scattered areas of fibroglandular density. There are no dominant masses or suspicious calcifications. A tissue clip marker is seen in the deep central portion of the left breast. A tissue clip marker is also seen in the anterior mid medial portion of the left breast. A tissue clip marker is also seen in the upper lateral portion of the right breast. Stable fat-containing bilateral axillary lymph nodes. No other significant abnormalities are identified. There has been no significant change since the prior study. BI/SCRN MAMM (CAD)W/BONG BILAT IMPRESSION: Stable bilateral screening mammogram. Yearly follow-up mammogram recommended. (A) ASSESSMENT CATEGORY: BIRADS Category 2: Benign. A letter regarding these results will be sent to the patient by the facility within 30 days. Approximately 10% of breast cancers are not detected by mammography. A normal mammogram should not delay biopsy of a clinically suspicious abnormality. [id number] Electronically Signed: Giles Thao MD at 14:02 EDT ,
== END | disposition home or self-care (01) ==
LOC: OPBI 12:24
PROVIDERS: PCP Internal Medicine; Referring Provider Nurse Practitioner Women's Health; Visit Provider Nurse Practitioner Women's Health
DX: Z12.31 Encounter for screening mammogram for malignant neoplasm of breast (principal)
CPT/HCPCS: 77063; 77067

== ENCOUNTER → 2023-12-09 | Outpatient (CLI) | payer OTHER, SELFPAY ==
--- NOTE | 2023-12-09 12:51 | CT_ITS ---
STUDY: CT MAXILLOFACIAL SINUSES REASON FOR EXAM: Female, 33 years old. Other chronic sinusitis RADIATION DOSAGE (If Supplied By Facility): CTDIvol = ( 33.06 ) mGy, DLP = ( 800.79 ) mGycm TECHNIQUE: The patient was scanned in a multi detector CT scanner. High resolution axial imaging was performed without the administration of intravenous contrast material. Sagittal and coronal images were reconstructed. Individualized dose optimization techniques were used for this CT. COMPARISON: None. FINDINGS: FRONTAL SINUSES: Normal aeration, without mucosal inflammatory disease. ETHMOIDAL SINUSES: Partial opacification of the right ethmoid sinus. MAXILLARY SINUSES: There is opacification of the right maxillary sinus. SPHENOIDAL SINUSES: Normal aeration, without mucosal inflammatory disease. The right ostiomeatal complex is compromised due to mucosal hypertrophy of the inflammatory process. Normal bilateral middle turbinates. Normal bilateral inferior turbinates. Normal midline nasal septum. There is patency of the bilateral nasal airways. The visualized osseous structures are normal. The visualized bilateral orbital contents are normal. CT/Sinus/Facial Bone IMPRESSION: Opacification of the right maxillary sinus and partial opacification of the right ethmoid sinus with compromise of the right ostiomeatal complex. Electronically Signed: Giles Thao MD at 14:00 EDT ,
== END | disposition home or self-care (01) ==
LOC: CT 12:50
PROVIDERS: PCP Internal Medicine; Referring Provider Otolaryngology; Visit Provider Otolaryngology
DX: J32.8 Other chronic sinusitis (principal)
CPT/HCPCS: 70486

== ENCOUNTER → 2024-01-30 | Outpatient (CLI) | payer OTHER, SELFPAY ==
--- NOTE | 2024-01-30 | ETH_PTH ---
PATIENT: KEMI WILLIS LOC: [facility] U#:[id number] AGE/SX: 33/F ROOM: RE01/30/[address]: Dr. Rodrick Taylor MD : 1990 BED: DIS: 01/30/2024 SPEC #: [id number] RECD: 01/31/24 11:08 STATUS: [place]LIN FRACISCO #: [id number] BREONNA: 01/30/24 00:[address]: Rodrick Taylor DEPT: SURGICAL PATHOLOGY RECD BY: Monica Farias ENTERED: 01/31/24 11:08 SP TYPE: ETH TISS OTHR DR: Dr. Deanna Peterson, DO [facility] Tissues: Ethmoid sinus, NOS Procedures: Surgery Specimen Level IV HEADER OPERATION: Left myringotomy with tubes, right maxillary antrostomy and right anterior ethmoidectomy PRE-OP DIAGNOSIS: Other chronic sinusitis, other specified disorders of eustachian tube, bilateral TISSUE SUBMITTED: Right sinus contents MICROSCOPIC DIAGNOSIS Right sinus contents: Fragments of respiratory mucosa with moderate acute and chronic inflammation and bone. Minute fragments of benign squamous epithelium. LISSY 02/03/2024 MICROSCOPIC DESCRIPTION Slides are reviewed. GROSS DESCRIPTION Received is one container labeled with the patient's name and not further designated. The specimen consists of multiple fragments of barboza soft tissue mixed with fragments of bone measuring in aggregate 2.5 x 1.0 x 0.2cm. The entire specimen is submitted in one cassette after decalcification. LISSY 01/31/2024 TC:3 CPT:60114
== END | disposition home or self-care (01) ==
LOC: LABSPEC 15:36
PROVIDERS: PCP Internal Medicine; Referring Provider Otolaryngology; Visit Provider Otolaryngology
DX: J32.8 Other chronic sinusitis (principal); H69.83 Other specified disorders of Eustachian tube, bilateral
CPT/HCPCS: 88305

== ENCOUNTER → 2024-09-26 | Outpatient (CLI) | payer OTHER, SELFPAY ==
[2024-09-29 14:08] LABS: HPV APTIMA, High Risk Negative (Negative)
== END | disposition home or self-care (01) ==
LOC: LABSPEC 15:58
PROVIDERS: PCP Internal Medicine; Referring Provider Nurse Practitioner Women's Health; Visit Provider Nurse Practitioner Women's Health
DX: Z12.4 Encounter for screening for malignant neoplasm of cervix (principal); N93.0 Postcoital and contact bleeding
CPT/HCPCS: 87070; 87205; 87624; 88175; G0145

== ENCOUNTER → 2024-11-02 | Outpatient (CLI) | payer OTHER, SELFPAY ==
--- NOTE | 2024-11-02 11:11 | CT_ITS ---
PROCEDURE: CTA HEAD AND NECK W/ CONTRAST 11/02/2024 REASON FOR EXAM: PULSATILE TINNITUS, LEFT EAR TECHNIQUE: CTA HEAD AND NECK W/ CONTRAST Multiplanar Sagittal and Coronal images were obtained. 3D post processing was performed CONTRAST: Isovue-300 VOLUME: 100 mL One or more dose reduction techniques were used (e.g., Automated exposure control, adjustment of the mA and/or kV according to patient size, use of iterative reconstruction technique). RADIATION DOSE SUMMARY: CTDlvol: 26 mGy DLP: 1361.76 mGycm COMPARISON: None FINDINGS: Aortic Arch: Normal size and branching pattern. No significant atherosclerotic plaque. Brachiocephalic and Subclavians: Unremarkable RIGHT Carotid: Right CCA: Unremarkable. Right ICA: Unremarkable. Right ECA: Unremarkable. LEFT Carotid: Left CCA: Unremarkable. Left ICA: Unremarkable. Left ECA: Unremarkable. Vertebrals: The right vertebral artery is dominant. RIGHT Vertebral: Unremarkable. LEFT Vertebral: Unremarkable. Anatomy: [place] anatomy is normal. Aneurysm or avm: No intracranial aneurysms or large vascular malformations are identified. Anterior cerebral arteries: Unremarkable: Middle cerebral arteries: Unremarkable. Basilar artery: Unremarkable. Posterior cerebral arteries: Unremarkable. Other major branches of the posterior circulation: Unremarkable. Major venous structures: Unremarkable. CT/CTA Head AND Neck W/ Contrast IMPRESSION: Unremarkable examination. Reading Location: [place] [id number]
== END | disposition home or self-care (01) ==
LOC: CT 11:09
PROVIDERS: PCP Internal Medicine; Referring Provider Otolaryngology; Visit Provider Otolaryngology
DX: H93.A2 Pulsatile tinnitus, left ear (principal)
CPT/HCPCS: 70496; 70498; Q9967

== ENCOUNTER → 2025-02-12 | Outpatient (CLI) | payer OTHER, SELFPAY ==
--- NOTE | 2025-02-12 09:55 | MRI_ITS ---
PROCEDURE: MRI/Brain W/WO Contrast
== END | disposition home or self-care (01) ==
LOC: MRI 09:35
PROVIDERS: PCP Internal Medicine; Referring Provider Ophthalmology; Visit Provider Ophthalmology
DX: R51.9 Headache, unspecified (principal); H53.8 Other visual disturbances; R42 Dizziness and giddiness
CPT/HCPCS: 70553; A9575; A4216

== ENCOUNTER 2025-02-15 09:14 | Emergency (ER) | payer OTHER, SELFPAY ==
[2025-02-15 09:15] VITALS: BP 116/79; PULSE 64; RESP 16; TEMP 36.1; O2SAT 98; BMI 31.2
[2025-02-15 09:32] VITALS: O2SAT 97
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
[2025-02-15 11:40] VITALS: BP 134/78; PULSE 98; RESP 16; TEMP 36.6; O2SAT 99
== END 2025-02-15 11:41 | disposition home or self-care (01) ==
PROVIDERS: Emergency Provider Emergency Medicine; PCP Internal Medicine; Visit Provider Emergency Medicine
DX: M54.2 Cervicalgia (principal); R20.2 Paresthesia of skin; V53.5XXA Driver of pick-up truck or van injured in collision with car, pick-up truck or van in traffic accident, initial encounter
CPT/HCPCS: 99282

== ENCOUNTER → 2025-04-03 | Outpatient (CLI) | payer OTHER, SELFPAY ==
--- NOTE | 2025-04-03 | CYSPIN_PTH ---
PATIENT: KEMI WILLIS LOC: [facility] U#:[id number] AGE/SX: 34/F ROOM: RE04/03/[address]: MARIZA Lanza : 1990 BED: DIS: 04/03/2025 SPEC #: [id number] RECD: 04/03/25 09:58 STATUS: FRANKLIN FRACISCO #: [id number] BREONNA: 04/03/25 00:[address]: Nena Joseph DEPT: CYTOLOGY RECD BY: Job Parr ENTERED: 04/03/25 10:36 SP TYPE: CYSPIN FL RUFINOHR DR: Dr. Deanna Peterson, Tissues: A - Cerebrospinal Fluid Procedures: Pap Stain (control) Special Stain Group II Cytospin Fluid HEADER OPERATION: Not noted PRE-OP DIAGNOSIS: Benign intracranial hypertension, migraine without aura, not intractable, without status migrainosus TISSUE SUBMITTED: A- Cerebrospinal fluid cytology DIAGNOSIS CYTOLOGY A. Cerebrospinal fluid: * No malignant cells are identified CYTOLOGY STUDY Slides are reviewed. CYTOLOGY GROSS A. Received is 4 ml of clear-colorless fluid labeled with the patient's name and and designated per the requisition as Cerebrospinal fluid. Submitted for cytology and cell block preparation. Mr 04/03/2025 CPT: 85478,[id number]
[2025-04-03 09:02] VITALS: BP 128/74; PULSE 89; RESP 16; O2SAT 100; BMI 31.2
--- NOTE | 2025-04-03 09:20 | RAD_ITS ---
PROCEDURE: DX LUMBAR PUNCTURE W/IMG GUIDE 04/03/2025 REASON FOR EXAM: G93.2 - BENIGN INTRACRANIAL HYPERTENSION TECHNIQUE: Procedure Code: RADLPFLORGUID Modality: DX Procedure: DX LUMBAR PUNCTURE W/IMG GUIDE, also with opening and closing pressures. Fluoroscopy time: 4 seconds. Dose: 1.5 mGy. COMPARISON: Abdomen and pelvis CT of 05/22/2022. FINDINGS: Following informed consent, an using standard sterile technique, a fluoroscopically guided lumbar puncture was performed. 2% lidocaine local anesthesia was placed at the L4-L5 level, followed by a 20 gauge 3-1/2 inch spinal needle. Opening pressure: 12 cm H2O. Closing pressure: 3 cm H2O. A proximally 17 mL clear fluid was successfully removed, and sent to the laboratory for evaluation. RAD/Dx Lumbar Puncture w/IMG Guide IMPRESSION: Successful fluoroscopically guided lumbar puncture as noted. Laboratory result s pending. Reading Location: [place] [id number]
[2025-04-03] MEDS: Lidocaine 2% (5ml sdv) 5 ML VIAL.MPF INFILT (09:28)
[2025-04-03 09:48] VITALS: BP 108/75; PULSE 86; RESP 16; O2SAT 100
[2025-04-03 09:59] LABS: Cytology, Body Fluid / CSF SEE PATHOLOGY REPORT
[2025-04-03 10:45] VITALS: BP 111/69; PULSE 84; RESP 16; O2SAT 100
[2025-04-03 11:14] LABS: Auto B Fluid Analyzer BKGD Ct COUNTS W/IN LIMITS (W/IN LIMITS); Glucose Spinal Fluid 61 mg/dL (40-75); Protein Spinal Fluid 34.5 mg/dL (15.0-45.0); Tested Tube # 3
[2025-04-03 11:15] LABS: Appearance CSF (character) CLEAR (Clear); CSF Color COLORLESS (Colorless)
[2025-04-03 11:19] LABS: RBC Count, Spinal Fluid 1 /mm-3 (None seen); White Count, CSF 3 /mm-3 (0 - 5)
[2025-04-03 11:39] LABS: Body Fluid QC Type(s) BF1Q
== END | disposition home or self-care (01) ==
PROVIDERS: PCP Internal Medicine
DX: G93.2 Benign intracranial hypertension (principal); G43.009 Migraine without aura, not intractable, without status migrainosus; H93.A9 Pulsatile tinnitus, unspecified ear
CPT/HCPCS: 62328; 82945; 84157; 87070; 87205; 88108; 88313; 89050; 89051